=== PATIENT | male | born 1955 | race Caucasian/White ===

== ENCOUNTER → 2016-09-20 | Outpatient (CLI) | payer OTHER ==
[2016-09-20 19:23] LABS: Basophils % (A) 0 %; Eosinophils # (A) 0.2 k/uL (0-0.7); Eosinophils % (A) 2 %; HDW 2.84; HGB 15.2 gm/dL (13.0-17.5); Luc # (Auto) 0.08; Luc % (Auto) 1; Lymphocytes # (A) 1.6 k/uL (1.0-4.8); Lymphocytes % (A) 24 %; MCH 29.2 pg (25.0-35.0); MCHC 33.1 g/dL (31.0-37.0); MCV 88.4 fL (80.0-100.0); Mean Platelet Volume 8.5; Monocytes # (A) 0.3 k/uL (0-1.0); Monocytes % (A) 5 %; Neutrophils # (A) 4.4 k/uL (1.3-7.7); Neutrophils % (A) 67 %; RDW 14.2 % (11.5-15.5); WBC 6.6 k/uL (3.8-10.6); WBC (Perox) 6.53
[2016-09-20 19:31] LABS: ALT 40 U/L (21-72); AST 26 U/L (17-59); Alkaline Phosphatase 93 U/L (38-126); Anion Gap 11 mmol/L; Blood Urea Nitrogen 11 mg/dL (9-20); Calcium 9.8 mg/dL (8.4-10.2); Carbon Dioxide 29 mmol/L (22-30); Chloride 102 mmol/L (98-107); Cholesterol 250 mg/dL (<200); Glucose 102 mg/dL (74-99); HDL Cholesterol 58 mg/dL (40-60); Non-African American GFR(MDRD) >60 (>60 ml/min/1.73 sqM); Potassium 4.2 mmol/L (3.5-5.1); Sodium 142 mmol/L (137-145); Total Bilirubin 0.7 mg/dL (0.2-1.3); Total Protein 7.7 g/dL (6.3-8.2); Triglycerides 287 mg/dL (<150)
== END ==
LOC: MMGSC 11:34
PROVIDERS: ATTEND Family Medicine
DX: Z00.00 Encounter for general adult medical examination without abnormal findings (principal); Z12.5 Encounter for screening for malignant neoplasm of prostate
CPT/HCPCS: 84439; 80053; 80061; 84443; 85025; 36415; G0103

== ENCOUNTER → 2016-11-11 | Outpatient (CLI) | payer OTHER ==
--- NOTE | 2016-11-11 10:30 | CT ---
EXAMINATION TYPE: CT abdomen pelvis w con DATE OF EXAM: 11/11/2016 COMPARISON: NONE HISTORY: 61 year-old male right lower quadrant pain, history of hernia TECHNIQUE: Contiguous axial scanning of the abdomen and pelvis following administration of 100 ml Omn ipaque 300 IV contrast. Delayed images through the kidneys and coronal/sagittal reconstructions perf ormed. CT DLP: 547.1 mGycm Automated exposure control for dose reduction was used. FINDINGS: Heart is normal size without pericardial effusion. Lung bases clear without pleural effusion. Small hiatal hernia. No focal liver lesion or biliary ductal dilatation. Portal venous system is patent. Gallbladder, adrenal glands, kidneys, spleen, and pancreas appear within normal limits. Rgeu-yn-orcrzpcy atherosclerotic calcifications within the abdominal aorta and iliac arteries without aneurysm. No dilated small bowel, free fluid, or free air. Mild to moderate stool burden. Mild circumferential wall thickening of the mid to distal sigmoid colo n may be secondary to under distention. No pericolonic inflammatory change. Bladder is partially urine distended. Prostate gland heterogeneous and mildly enlarged at 4.3 cm. No abnormal fluid collection in the pelvis or pelvic lymphadenopathy. Bones: Nonspecific sclerotic focus left iliac bone measures 2.2 cm. Mild degenerative changes lower l umbar spine with lumbar laminectomy changes. No osseous destructive process. IMPRESSION: 1. CIRCUMFERENTIAL WALL THICKENING OF THE MID TO DISTAL SIGMOID COLON MAY RELATE TO UNDERDISTENTION. CORRELATE TO EXCLUDE A MILD NONSPECIFIC COLITIS. 2. SMALL HIATAL HERNIA. 3. A ROUND 2.2 CM SCLEROTIC LESION IN THE LEFT ILIAC BONE IS NONSPECIFIC AND HAS OVERALL NONAGGRESSIV E FEATURES. A 6 MONTH FOLLOW-UP EXAM OF THE PELVIS CAN ENSURE STABILITY.
== END | disposition home or self-care (01) ==
LOC: RADCTMAIN 09:28
PROVIDERS: ATTEND Surgery
DX: K63.89 Other specified diseases of intestine (principal); M89.8X8 Other specified disorders of bone, other site
CPT/HCPCS: 74177; Q9967

== ENCOUNTER 2016-11-30 11:20 | Day surgery (SDC) | payer MEDICARE, OTHER ==
[2016-11-25 14:19] VITALS: BMI 26.6
[~2016-11-30 11:20] MED LIST: LACTATED RINGERS 1,000 ML IV SCH
[2016-11-30] MEDS ORDERED: LACTATED RINGERS 1,000 ML IV ONE (11:45)
[2016-11-30] MEDS ORDERED: LIDOCAINE 1% 20 ML VIAL (10MG/ML) FOR IV START INTRADERMA ONE (11:45)
[2016-11-30 11:50] VITALS: RESP 16; TEMP 98.7
[2016-11-30] MEDS ORDERED: PROPOFOL 10 MG/ML 20 ML VIAL IV ONE (11:51)
--- NOTE | 2016-11-30 11:55 | P.GSHP ---
History of Present Illness H&P Date: 11/30/16 Chief Complaint: GERD, colitis This a 61-year-old male referred from Dr. Darlin So. Patient has had complaints of GERD. His recent CAT scan shows evidence of sigmoid colon thickening. He resents today for EGD and colonoscopy. Past Medical History Past Medical History: COPD, GERD/Reflux, Hyperlipidemia, Sleep Apnea/CPAP/BIPAP , Thyroid Disorder Additional Past Medical History / Comment(s): hiatal hernia, History of Any Multi-Drug Resistant Organisms: None Reported Past Surgical History: Back Surgery, Hernia Repair, Orthopedic Surgery, Tonsillectomy Additional Past Surgical History / Comment(s): 2 CERVICAL FUSIONS, INGA CARPAL TUNNEL , RT FOOT SURGURY A CHILD, LAMINECTOMY Past Anesthesia/Blood Transfusion Reactions: No Reported Reaction Smoking Status: Former smoker - Past Family History Father Family Medical History: Cancer Additional Family Medical History / Comment(s): LUNG CA Medications and Allergies Home Medications Medication Instructions Recorded Confirmed Type Albuterol Inhaler [Ventolin 1 - 2 puff INHALATION DIRECTED 02/12/15 11/30/16 History Inhaler] PRN Aspirin EC [Ecotrin] 81 mg PO DAILY 02/12/15 11/30/16 History Budesonide-Formot 160-4.5 Mcg 2 puff INHALATION BID 02/12/15 11/30/16 History [Symbicort 160-4.5 Mcg Inhaler] Levothyroxine Sodium [Synthroid] 50 mcg PO DAILY 02/12/15 11/30/16 History DULoxetine HCL [Cymbalta] 60 mg PO DAILY 11/25/16 11/30/16 History Lansoprazole [Prevacid] 30 mg PO DAILY 11/25/16 11/30/16 History Simvastatin 20 mg PO DAILY 11/25/16 11/30/16 History Allergies Allergy/AdvReac Type Severity Reaction Status Date / Time oxycodone HCl [From Tylox] Allergy Unknown Itching Verified 11/30/16 11:43 Surgical - Exam Vital Signs Temp Pulse Resp BP Pulse Ox 98.7 F 67 16 141/79 98 11/30/16 11:45 11/30/16 11:45 11/30/16 11:45 11/30/16 11:45 11/30/16 11:45 - General well developed, no distress - Eyes PERRL - ENT normal pinna - Neck no masses - Respiratory normal expansion - Cardiovascular Rhythm: regular - Abdomen Abdomen: soft, non tender Assessment and Plan Plan: GERD. We'll perform EGD. Sigmoid colon inflammation. We'll perform colonoscopy.
--- NOTE | 2016-11-30 12:10 | P.OP ---
Date of Procedure: 11/30/16 Preoperative Diagnosis: GERD Colitis Postoperative Diagnosis: Antral gastritis Small hiatal hernia Esophagitis Segment colon polyp Procedure(s) Performed: EGD Colonoscopy Implants: Anesthesia: MAC Surgeon: Chadwick Clay Pathology: other (Antrum, sigmoid colon polyp) Condition: stable Disposition: PACU Indications for Procedure: Operative Findings: Description of Procedure: Patient's placed on the endoscopy table in the lateral position. He received IV sedation. The gastroscope placed oropharynx passed in the esophagus and stomach. Scope was then placed through the pylorus. The first and second portion of duodenum appeared normal. Scope was then brought back the antrum and this appeared mildly inflamed. A biopsies performed. The scope was unretroflexed and the remainder stomach appeared normal. The GE junction was at 40 cm. The distal esophagus appeared minimally inflamed and a biopsies performed. There was a small hiatal hernia. The proximal esophagus appeared normal. Scope was withdrawn. Next digital rectal exam was performed which revealed no abnormalities. The flexible colonoscope was then placed patient anus passed throughout the entire colon. The ileocecal valve sutures. The cecum, ascending and transverse colon appeared normal. In the descending; there is a few scattered diverticula. In the; there was a small polyp seen was removed forcep. There is no evidence of any sigmoid colon inflammation. The scope was then brought back the rectum and this appeared normal. Scope was withdrawn for patient.
[2016-11-30 12:39] VITALS: BP 139/67; PULSE 67
== END 2016-11-30 13:03 | disposition home or self-care (01) ==
LOC: ORWHC2ENDO 11:20
PROVIDERS: ATTEND Surgery
DX: K52.9 Noninfective gastroenteritis and colitis, unspecified (principal); K29.60 Other gastritis without bleeding; K44.9 Diaphragmatic hernia without obstruction or gangrene; K21.0 Gastro-esophageal reflux disease with esophagitis; D12.5 Benign neoplasm of sigmoid colon; K57.30 Diverticulosis of large intestine without perforation or abscess without bleeding; E78.5 Hyperlipidemia, unspecified; J44.9 Chronic obstructive pulmonary disease, unspecified; Z87.891 Personal history of nicotine dependence; G47.30 Sleep apnea, unspecified; Z99.89 Dependence on other enabling machines and devices; E07.9 Disorder of thyroid, unspecified; Z79.82 Long term (current) use of aspirin; Z79.51 Long term (current) use of inhaled steroids; Z79.899 Other long term (current) drug therapy; Z88.5 Allergy status to narcotic agent
CPT/HCPCS: 88305; 45380; 43239; J2704

== ENCOUNTER → 2016-12-23 | Outpatient (CLI) | payer MEDICARE, OTHER | END | disposition home or self-care (01) | LOC: LABWHC1 11:56 | PROVIDERS: ATTEND Surgery | DX: Z01.810 Encounter for preprocedural cardiovascular examination (principal) | CPT/HCPCS: 93005 ==

== ENCOUNTER 2016-12-30 08:00 | Day surgery (SDC) | payer MEDICARE, OTHER ==
[2016-12-22 15:34] VITALS: BMI 26.6
[~2016-12-30 08:00] MED LIST changes: +DEXAMETHASONE SOD PHOSPHATE 10 MG/ML 1 ML VIAL IV ONE; +HEPARIN SODIUM,PORCINE 5,000 UNIT/ML 1 ML VIAL SQ ONE; +HYDROmorphone 1 MG/ML 1 ML SYRINGE IVP PRN; +LIDOCAINE 1% 20 ML VIAL (10MG/ML) FOR IV START INTRADERMA PRN; +ONDANSETRON 4 MG/2 ML VIAL IVP ONE; +SCOPOLAMINE 1.5MG/72HR PATCH TRANSDERM ONE; +ceFAZolin 2 GM in SODIUM CHLORIDE 0.9% 100 ML IVPB ONE
--- NOTE | 2016-12-30 09:09 | P.GSHP ---
History of Present Illness H&P Date: 12/30/16 Chief Complaint: GERD This a 61-year-old male referred from Dr. Darlin So.. MThe patient has had long-standing problems with reflux esophagitis. The patient underwent recent EGD is found have evidence of esophagitis. Patient has been well informed on the procedure of laparoscopic Rory fundoplication. The patient is aware the risk of the conversion to the open procedure, risk of injury to the stomach, liver and spleen. The patient is also a risk of recurrent GERD and dysphagia symptoms. The patient understands there is a postoperative diet of full liquids for 2 weeks after surgery. Past Medical History Past Medical History: COPD, GERD/Reflux, Hyperlipidemia, Sleep Apnea/CPAP/BIPAP , Thyroid Disorder Additional Past Medical History / Comment(s): hiatal hernia, History of Any Multi-Drug Resistant Organisms: None Reported Past Surgical History: Back Surgery, Hernia Repair, Orthopedic Surgery, Tonsillectomy Additional Past Surgical History / Comment(s): 2 CERVICAL FUSIONS, INGA CARPAL TUNNEL , RT FOOT SURG. A CHILD, LAMINECTOMY Past Anesthesia/Blood Transfusion Reactions: No Reported Reaction Smoking Status: Former smoker - Past Family History Father Family Medical History: Cancer Additional Family Medical History / Comment(s): LUNG CA Medications and Allergies Home Medications Medication Instructions Recorded Confirmed Type Albuterol Inhaler [Ventolin 1 - 2 puff INHALATION Q6H PRN 02/12/15 12/30/16 History Inhaler] Aspirin EC [Ecotrin] 81 mg PO DAILY 02/12/15 12/30/16 History Budesonide-Formot 160-4.5 Mcg 2 puff INHALATION BID 02/12/15 12/30/16 History [Symbicort 160-4.5 Mcg Inhaler] Levothyroxine Sodium [Synthroid] 50 mcg PO DAILY 02/12/15 12/30/16 History DULoxetine HCL [Cymbalta] 60 mg PO DAILY 11/25/16 12/30/16 History Lansoprazole [Prevacid] 30 mg PO DAILY 11/25/16 12/30/16 History Simvastatin 20 mg PO DAILY 11/25/16 12/30/16 History Allergies Allergy/AdvReac Type Severity Reaction Status Date / Time oxycodone HCl [From Tylox] Allergy Unknown Itching Verified 12/30/16 08:52 Surgical - Exam Vital Signs Temp Pulse Resp BP 97.9 F 74 16 136/87 12/30/16 08:15 12/30/16 08:15 12/30/16 08:15 12/30/16 08:15 - General well developed, no distress - Eyes PERRL - ENT normal pinna - Neck no masses - Respiratory normal expansion - Cardiovascular Rhythm: regular - Abdomen Abdomen: soft, non tender Assessment and Plan Plan: GERD. We'll perform laparoscopic Rory fundoplication.
[2016-12-30] MEDS ORDERED: GLYCOPYRROLATE 0.2 MG/ML 2 ML VIAL ONE (09:31)
[2016-12-30] MEDS ORDERED: KETOROLAC 30 MG/ML 1 ML VIAL ONE (09:31)
[2016-12-30] MEDS ORDERED: SODIUM CHLORIDE 0.9% 250 ML with ceFAZolin 2,000 MG IV ONE ×2 (09:31)
[2016-12-30] MEDS ORDERED: fentaNYL (PF) 50 MCG/ML 2 ML AMP ONE (09:31)
[2016-12-30] MEDS ORDERED: MIDAZOLAM 2 MG/2 ML VIAL ONE (09:31)
[2016-12-30] MEDS ORDERED: LIDOCAINE 1% INJ 10MG/ML (20 ML MDV) ONE (09:31)
[2016-12-30] MEDS ORDERED: HYDROmorphone (PF) 1 MG/ML ONE (09:31)
[2016-12-30] MEDS ORDERED: ROCURONIUM BROMIDE 10 MG/ML 10 ML VIAL IV ONE (09:31)
[2016-12-30] MEDS ORDERED: NEOSTIGMINE 1 MG/ML 10 ML VIAL ONE (09:31)
[2016-12-30] MEDS ORDERED: SUCCINYLCHOLINE CHLORIDE 100 MG/5 ML SYR IV ONE (09:31)
[2016-12-30] MEDS ORDERED: PROPOFOL 10 MG/ML 20 ML VIAL IV ONE (09:31)
[2016-12-30] MEDS ORDERED: BUPIVACAIN-EPI 0.5%-1:200,000 30 ML VIAL SQ ONE (09:57)
--- NOTE | 2016-12-30 10:15 | P.OP ---
Date of Procedure: 12/30/16 Preoperative Diagnosis: GERD Postoperative Diagnosis: GERD Procedure(s) Performed: Laparoscopic Rory fundal location Implants: Anesthesia: JUAN C Surgeon: Chadwick Clay Estimated Blood Loss (ml): 5 Pathology: none sent Condition: stable Disposition: PACU Indications for Procedure: Operative Findings: Description of Procedure: The patient was placed on the operating table in the supine position. The patient received general anesthesia. And was placed in dorsal lithotomy position. The patient was prepped and draped in the usual sterile fashion. The skin incision sites were anesthetized with 1% local Xylocaine. The skin was incised in the left periumbilical area and then using a blade less 5 mm trocar under direct visualization panel cavity was entered. After adequate insufflation the laparoscope was then placed into the peritoneal cavity. Next a 5 mm trochars placed in the right epigastric position. Another 5 millimeter trocar the right lateral position. Another 5 millimeter trocar in the left lateral position a 5 mm trocar is placed in the left epigastric position. And then the initial 5 mm trocar was exchanged for a 10 mm trocar. The left lateral lobe liver was retracted. The hernia was seen. The crural defect was then dissected using the Harmonic scissors device. A 360 crural dissection was performed the esophagus stomach was reduced back into the peritoneal Cavity. The crural defect was then closed using 2-0 Ethibond suture. Next the fundus of the stomach was mobilized using the [place] scissors device. and then a 58-Faroese bougie dilator was placed oropharynx passed into the esophagus and stomach the fundal plication wrap was then performed by grasping the fundus posteriorly and bringing it around the esophagus and stomach fundoplication was then performed using 2-0 Ethibond suture. Care was taken that the fundal location rested over top of the intra-abdominal esophagus. There was no injury seen to the stomach or esophagus. The dilator was then withdrawn. The abdomen was irrigated there is no bleeding seen. The trochars were then withdrawn and then skin incision sites were closed using 3-0 Monocryl suture Steri-Strips are applied. Patient thought procedure well and sent to recovery room in stable condition.
[2016-12-30] MEDS ORDERED: ONDANSETRON 4 MG/2 ML VIAL IVP PRN (10:16)
[2016-12-30] MEDS ORDERED: HYDROmorphone 1 MG/ML 1 ML SYRINGE IVP PRN (10:16)
[2016-12-30 10:50] VITALS: RESP 16
[2016-12-30] MEDS ORDERED: LACTATED RINGERS 1,000 ML IV ONE ×2 (10:54)
[2016-12-30] MEDS: D5-0.45% NACL WITH KCL 20MEQ/L 1,000 ML IV SCH ×2 (11:00→19:43)
[2016-12-30] MEDS: METOCLOPRAMIDE 5 MG/ML 2 ML VIAL IVP SCH ×3 (11:00→23:33)
--- NOTE | 2016-12-30 16:11 | FL ---
Single contrast esophagram EXAMINATION TYPE: FL esophagus cervic/pharynx DATE OF EXAM: 12/30/2016 3:51 PM COMPARISON: NONE CLINICAL HISTORY: Status post Erlin fundoplication The patient ingested contrast without difficulty or delay. Noted are changes of Erlin fundoplicatio n. There is no evidence for leak or obstruction. Small amount of residual contrast within the distal esophagus. IMPRESSION: Post-surgical change of Erlin fundoplication without evidence for leak or obstruction.
[2016-12-30] MEDS ORDERED: ALBUTEROL NEBULIZED 2.5 MG/3 ML INHALATION PRN (19:01)
[2016-12-30] MEDS: SYMBICORT 160-4.5 MCG INHALER INHALATION SCH (19:17)
[2016-12-31] MEDS: D5-0.45% NACL WITH KCL 20MEQ/L 1,000 ML IV SCH (03:58)
[2016-12-31] MEDS: METOCLOPRAMIDE 5 MG/ML 2 ML VIAL IVP SCH (06:00)
[2016-12-31] MEDS ORDERED: LEVOTHYROXINE 50 MCG TAB PO SCH (06:30)
[2016-12-31 07:22] VITALS: BP 128/70; PULSE 64; TEMP 97.1
[2016-12-31] MEDS: SYMBICORT 160-4.5 MCG INHALER INHALATION SCH (07:29)
[2016-12-31] MEDS ORDERED: PANTOPRAZOLE 40 MG TABLET PO SCH (07:30)
[2016-12-31] MEDS ORDERED: ASPIRIN 81 MG CHEW PO SCH (09:00)
[2016-12-31] MEDS ORDERED: ENOXAPARIN 40 MG/0.4 ML SYRINGE SQ SCH (09:00)
[2016-12-31] MEDS ORDERED: DULoxetine HCL 60 MG CAPSULE.DR PO SCH (09:00)
[2016-12-31] MEDS ORDERED: ATORVASTATIN 10 MG TAB PO SCH (09:00)
--- NOTE | 2016-12-31 09:30 | P.DS ---
Providers Expected date of discharge: 12/31/16 Attending physician: Chadwick Clay Primary care physician: Darlin Pritchett - Discharge Diagnosis(es) (1) GERD (gastroesophageal reflux disease) Current Visit: Yes Status: Acute Hospital Course: The patient presented for laparoscopic Rory fundoplication. He was monitored afterwards and was doing well by postop day 1. Tolerating clear liquids with minimal pain. [place] to be stable for discharge. Swallow study was normal. Pertinent Studies: Swallow study Patient Condition at Discharge: Good Plan - Discharge Summary New Discharge Prescriptions: New Docusate [Colace] 100 mg PO BID #20 capsule HYDROcodone/APAP 7.5-325MG [[place] 7.5] 1 each PO Q4H PRN #60 tab PRN Reason: Pain No Action Budesonide-Formot 160-4.5 Mcg [Symbicort 160-4.5 Mcg Inhaler] 2 puff INHALATION BID Aspirin EC [Ecotrin] 81 mg PO DAILY Albuterol Inhaler [Ventolin Inhaler] 1 - 2 puff INHALATION Q6H PRN PRN Reason: Shortness Of Breath Levothyroxine Sodium [Synthroid] 50 mcg PO DAILY Lansoprazole [Prevacid] 30 mg PO DAILY DULoxetine HCL [Cymbalta] 60 mg PO DAILY Simvastatin 20 mg PO DAILY Discharge Medication List Albuterol Inhaler [Ventolin Inhaler] 1 - 2 puff INHALATION Q6H PRN 02/12/15 [ History] Aspirin EC [Ecotrin] 81 mg PO DAILY 02/12/15 [History] Budesonide-Formot 160-4.5 Mcg [Symbicort 160-4.5 Mcg Inhaler] 2 puff INHALATION BID 02/12/15 [History] Levothyroxine Sodium [Synthroid] 50 mcg PO DAILY 02/12/15 [History] DULoxetine HCL [Cymbalta] 60 mg PO DAILY 11/25/16 [History] Lansoprazole [Prevacid] 30 mg PO DAILY 11/25/16 [History] Simvastatin 20 mg PO DAILY 11/25/16 [History] Docusate [Colace] 100 mg PO BID #20 capsule 12/30/16 [Rx] HYDROcodone/APAP 7.5-325MG [[place] 7.5] 1 each PO Q4H PRN #60 tab 12/30/16 [Rx] Follow up Appointment(s)/Referral(s): Chadwick Clay MD [STAFF PHYSICIAN] - 1 Week Discharge Disposition: HOME SELF-CARE
== END 2016-12-31 12:50 | disposition home or self-care (01) ==
LOC: OR 08:00 → 3SUR 10:20 → OR 12-31 12:50
PROVIDERS: ATTEND Surgery
DX: K21.0 Gastro-esophageal reflux disease with esophagitis (principal); K44.9 Diaphragmatic hernia without obstruction or gangrene; J44.9 Chronic obstructive pulmonary disease, unspecified; E78.5 Hyperlipidemia, unspecified; G47.30 Sleep apnea, unspecified; E07.9 Disorder of thyroid, unspecified; Z79.82 Long term (current) use of aspirin; Z79.51 Long term (current) use of inhaled steroids; Z79.899 Other long term (current) drug therapy; Z88.5 Allergy status to narcotic agent; Z87.891 Personal history of nicotine dependence
CPT/HCPCS: 94640 ×2; 74210; 43280; J2250; J1644; J1100; J2710; J2765 ×2; Q9967; J2405; J0690; J2001; J1650; J3010; J1885; J1170; J0330; J2704

== ENCOUNTER → 2017-07-07 | Outpatient (CLI) | payer MEDICARE, OTHER ==
[2017-07-07 08:15] LABS: ALT 72 U/L (21-72); AST 49 U/L (17-59); Albumin 4.5 g/dL (3.5-5.0); Alkaline Phosphatase 94 U/L (38-126); Anion Gap 10 mmol/L; Blood Urea Nitrogen 12 mg/dL (9-20); Calcium 10.2 mg/dL (8.4-10.2); Carbon Dioxide 32 mmol/L (22-30); Chloride 102 mmol/L (98-107); Cholesterol 283 mg/dL (<200); Glucose 94 mg/dL (74-99); HDL Cholesterol 61 mg/dL (40-60); LDL Cholesterol,Calculated 162 mg/dL (0-99); Phosphorus 4.2 mg/dL (2.5-4.5); Potassium 4.3 mmol/L (3.5-5.1); Sodium 144 mmol/L (137-145); Total Bilirubin 0.4 mg/dL (0.2-1.3); Total Protein 7.6 g/dL (6.3-8.2); Triglycerides 299 mg/dL (<150)
[2017-07-07 08:25] LABS: HCT 45.2 % (39.0-53.0); HGB 15.2 gm/dL (13.0-17.5); MCHC 33.7 g/dL (31.0-37.0); MCV 86.1 fL (80.0-100.0); Mean Platelet Volume 7.6; Platelet Count 168 k/uL (150-450); RBC 5.25 m/uL (4.30-5.90); RDW 13.8 % (11.5-15.5)
[2017-07-07 17:07] LABS: Vitamin D 25 Hydroxy 10.3 ng/mL (30.0-100.0)
[2017-07-07 18:11] LABS: Parathyroid Hormone Intact 23.5 pg/mL (14.0-72.0)
== END | disposition home or self-care (01) ==
LOC: LABWHC1 07:31
PROVIDERS: ATTEND Internal Medicine
DX: N18.3 Chronic kidney disease, stage 3 (moderate) (principal); E03.9 Hypothyroidism, unspecified; E78.1 Pure hyperglyceridemia
CPT/HCPCS: 36415; 80053; 80061; 80069; 82306; 83970; 84439; 84443; 85027

== ENCOUNTER → 2017-09-01 | Outpatient (CLI) | payer MEDICARE, OTHER ==
--- NOTE | 2017-09-01 13:03 | CONS ---
CONSULTATION DATE OF SERVICE: 09/01/2017 A 62-year-old gentleman has been evaluated in the sleep center for treatment of obstructive sleep apnea-hypopnea syndrome, twitching of the legs during the night, sleepiness during the day with high [place] Sleepiness Scale of 16 while on treatment with CPAP. HISTORY OF PRESENT ILLNESS/SLEEP WAKE EVALUATION: Patient had been diagnosed with obstructive sleep apnea about 3-1/2 years ago. Since that time, on treatment with CPAP, but while using CPAP according to his , he still snores and wakes up from sleep several times with nocturia. His sleep schedule from 9 p.m. to 7 a.m. basically 7 days a week. Sometimes he has problem with falling asleep and he is taking Seroquel at bedtime to help him with falling asleep. During the night as I already mentioned even while he is using CPAP, he snores. In the morning, he wakes up tired, has difficulties to pay attention, falling asleep during the day. [place] Sleepiness Scale significantly increased to 16. The patient has positive history of twitching and kicking of legs during the night. Patient increased his weight about 10 pounds since previous sleep studies. He also develops more problem with breathing through his nose recently. PAST MEDICAL HISTORY: Positive for depression, episodes of , hypothyroidism, COPD. PAST SURGICAL HISTORY: Surgical treatment of hiatal hernia, cervical fusion, bilateral surgery for carpal tunnel syndrome. REVIEW OF SYSTEMS: Awakenings from sleep, sleepiness during the day. Difficulties with the hearing. Patient is using hearing aids. No fevers. No double vision. No recent chest pain. No shortness of breath. No abdominal pain. No bleeding episodes. No blood in urine. No seizure episodes. MEDICATIONS: Cymbalta, Seroquel, Zocor, Synthroid, Symbicort, Ventolin, Lyrica, Flomax, vitamin D3 supplement, vitamin E supplement, aspirin. SOCIAL HISTORY: Positive for smoking for about 30 years up to 1-1/2 packs a day, quit around 15 years ago. Alcohol consumption occasional. FAMILY HISTORY: Hypertension, hyperlipidemia, arthritis, asthma, cancer, lung problems, emphysema, sleep apnea, snoring, thyroid problems, diabetes. PHYSICAL EXAMINATION: During physical exam, a gentleman without distress. VITAL SIGNS: BP 101/64, HR 96, RR 16, height 5 feet 6-1/2 inches, weight 172, BMI 27.3, temperature 98, oxygen saturation room air 96%. HEENT: PERRLA, EOMI. Oropharynx: Low position of soft palate. Significant restriction of nasal breathing. NECK: 16-1/2 inches in circumference. LUNGS:Clear to percussion and to auscultation. Good air exchange. No wheezing or rhonchi. HEART: S1, S2 regular. No murmurs, gallops, or rubs. ABDOMEN: Soft and nontender. Bowel sounds are present. No organomegaly appreciated. EXTREMITIES: No clubbing or cyanosis. AUTOMOTIVE LOT ATTENDANT: Awake, alert, and oriented X3. Cranial nerves 2 to 7 intact. There is no fasciculation or atrophy. noted. No focal deficits observed. IMPRESSION: 1. History of obstructive sleep apnea-hypopnea syndrome for 3-1/2 years on treatment with CPAP but on CPAP patient snores and has symptoms of excessive daytime sleepiness. [place] Sleepiness Scale increased to 16. He increased his weight since previous CPAP titration. Low position of soft palate. Restriction of nasal breathing. 2. Restriction of nasal breathing. 3. Twitching and kicking with legs during the night, possible periodic limb movement syndrome. 4. Significant excessive daytime sleepiness. [place] Sleepiness Scale increased to 16, necessity to include additional possible disorders like hypersomnia to differential diagnosis. 5. Depression. 6. Episodes of . 7. Sometimes difficulties with initiating sleep. 8. History of restless leg symptoms while falling asleep, restless legs syndrome. 9. Difficulties to hear. The patient is using hearing aids. PLAN: 1. We will repeat the CPAP titration for evaluation of effective CPAP pressure at the present time. Also possibly to change fitting with the mask. The patient tried different styles of mask including nasal pillows, nasal mask and full face mask. At the present time, he prefer to consider full face mask because he developed problems to breathe through his nose. 2. Preferable position during sleep on the side. 3. No driving if patient feels any sleepiness. Patient is aware of civil and criminal liability for unsafe driving. 4. I will see patient for follow up visit to explain results of testing and following plan. Thank you very much for referring this patient for consultation. Sincerely, Gene Roman MD, PhD, FAASM Diplomat of [place] [employer] [place] [employer] Manager of [facility] [place] [facility] / MAY[place]: [id number] /
== END | disposition home or self-care (01) ==
LOC: SLEEP 11:22
PROVIDERS: ATTEND Internal Medicine
DX: G47.33 Obstructive sleep apnea (adult) (pediatric) (principal); J98.8 Other specified respiratory disorders; F32.9 Major depressive disorder, single episode, unspecified; G25.81 Restless legs syndrome; H93.8X9 Other specified disorders of ear, unspecified ear; Z99.89 Dependence on other enabling machines and devices; Z87.891 Personal history of nicotine dependence; Z79.899 Other long term (current) drug therapy; Z79.82 Long term (current) use of aspirin
CPT/HCPCS: 99211

== ENCOUNTER → 2017-11-23 | Outpatient (CLI) | payer MEDICARE, OTHER ==
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
== END | disposition home or self-care (01) ==
LOC: RADCTMAIN 16:25
PROVIDERS: ATTEND Psychiatry & Neurology Neurology
DX: M47.812 Spondylosis without myelopathy or radiculopathy, cervical region (principal); G31.9 Degenerative disease of nervous system, unspecified; Z98.890 Other specified postprocedural states
CPT/HCPCS: 70450; 72125

== ENCOUNTER → 2017-12-22 | Outpatient (CLI) | payer MEDICARE ==
--- NOTE | 2017-12-22 12:28 | PN ---
PROGRESS NOTE DATE OF SERVICE: 12/22/2017 A 62-year-old gentleman who has been followed in the Sleep Center for treatment of obstructive sleep apnea-hypopnea syndrome recently, he had CPAP titration and received new CPAP unit. With a new CPAP unit. according to patient, he sleeps much better and feel better during the day. [place] Sleepiness Scale today is 12, which is still slightly above normal. I checked the patient's CPAP unit, usage is 100% of the time for more than 4 hours. Average usage 10.7 hours. Pressure is 13 cm of water. Leak is only 5 L/minute, although patient using full-face mask. Apnea-hypopnea index for the last month is 8.5, including total apnea index 6.4, and central apnea index 2.9. MEDICATIONS: Cymbalta, Seroquel, Zocor, Synthroid, Symbicort, Ventolin, Lyrica, Flomax, vitamin D, vitamin E, aspirin. PHYSICAL EXAM: Patient in no distress. BP 97/59, HR 75, RR 16, weight 167, temp 97.8, oxygen saturation at room air 97%. OROPHARYNX: Low position of soft palate. Neck Supple, no JVD. Thyroid is not palpable. LUNGS Clear to percussion and to auscultation. Good air exchange. No wheezing or rhonchi. HEART S1, S2 regular. No murmurs, gallops, or rubs. ABDOMEN Soft and nontender. Bowel sounds are present. No organomegaly appreciated. EXTREMITIES No clubbing or cyanosis. COORDINATOR OF REHABILITATION SERVICES Awake, alert, and oriented X3. Cranial nerves 2 to 7 intact. There is no fasciculation or atrophy. noted. No focal deficits observed. IMPRESSION: 1. Obstructive central sleep apnea-hypopnea syndrome, patient demonstrated 100% compliance with treatment, benefitting from treatment. 2. Severe periodic limb movements have been documented during titration. No clinical symptoms of leg movements according to patient. 3. Depression. 4. History of restless legs syndrome. 5. Some problems with the hearing. 6. Chronic obstructive pulmonary disease. 7. Back problems. status post back surgery. PLAN: 1. Patient will continue to use CPAP equipment every night for the whole night. 2. I will increase pressure from 13 cm of water up to 14 cm of water. 3. Sleep hygiene with regular time in bed for at least 8 hours. 4. No driving if feeling any sleepiness. Thank you very much for allowing me to participate in the management of the patient. Sincerely, Gene Roman MD, PhD, FAASM Diplomat of [place] [employer] [place] [employer] Resolution Rep of [facility] [place] [facility] / [place]: [id number] /
== END | disposition home or self-care (01) ==
LOC: SLEEP 11:22
PROVIDERS: ATTEND Internal Medicine
DX: G47.33 Obstructive sleep apnea (adult) (pediatric) (principal); G47.61 Periodic limb movement disorder; G25.81 Restless legs syndrome; J44.9 Chronic obstructive pulmonary disease, unspecified; H91.90 Unspecified hearing loss, unspecified ear; F32.9 Major depressive disorder, single episode, unspecified; Z99.89 Dependence on other enabling machines and devices; Z79.51 Long term (current) use of inhaled steroids; Z79.899 Other long term (current) drug therapy; Z79.82 Long term (current) use of aspirin; Z98.890 Other specified postprocedural states

== ENCOUNTER → 2018-01-11 | Outpatient (CLI) | payer MEDICARE, OTHER ==
[2018-01-10 12:16] VITALS: BMI 28.0
[2018-01-11 13:22] VITALS: BP 133/70; PULSE 71; RESP 18; TEMP 98.5
--- NOTE | 2018-01-11 13:48 | P.PAINCN ---
History of Present Illness - Reason for Consult Consult date: 01/11/18 - History of Present Illness This is 62 years old male, with a chronic history of severe headache, and neck pain started 6 months ago, he was evaluated by Dr. Blanco, and he was diagnosed with occipital neuralgia, and he referred to [facility] for bilateral occipital nerve block, patient reported that his neck pain and headache increased with any activity, he denies any motor or sensory deficit, but he reports he originally had some numbness and tingling sensation that radiated from the neck towards the upper extremity, he denies any fever or night sweats Past Medical History Past Medical History: COPD, GERD/Reflux, Hyperlipidemia, Renal Disease, Sleep Apnea/CPAP/BIPAP, Thyroid Disorder Additional Past Medical History / Comment(s): headaches,uses cpap,Stg 2 kidney disease History of Any Multi-Drug Resistant Organisms: None Reported Past Surgical History: Back Surgery, Hernia Repair, Orthopedic Surgery, Tonsillectomy Additional Past Surgical History / Comment(s): 2 CERVICAL FUSIONS, INGA CARPAL TUNNEL , RT FOOT SURG,LAMINECTOMY,hiatal hernia repair,lt inguinal hernia repair Past Anesthesia/Blood Transfusion Reactions: No Reported Reaction Past Psychological History: Depression Smoking Status: Former smoker Past Alcohol Use History: Occasional Additional Past Alcohol Use History / Comment(s): quit smoking 13 yrs ago, smoked for 35-40 yrs, 1 1/2 PPD Past Drug Use History: None Reported - Past Family History Father Family Medical History: Cancer Additional Family Medical History / Comment(s): LUNG CA Medications and Allergies Home Medications Medication Instructions Recorded Confirmed Type Albuterol Inhaler [Ventolin 1 - 2 puff INHALATION Q6H PRN 02/12/15 01/11/18 History Inhaler] Aspirin EC [Ecotrin] 81 mg PO DAILY 02/12/15 01/11/18 History Budesonide-Formot 160-4.5 Mcg 2 puff INHALATION BID 02/12/15 01/11/18 History [Symbicort 160-4.5 Mcg Inhaler] Levothyroxine Sodium [Synthroid] 50 mcg PO DAILY 02/12/15 01/11/18 History DULoxetine HCL [Cymbalta] 60 mg PO DAILY 11/25/16 01/11/18 History Atorvastatin [Lipitor] 20 mg PO DAILY 01/10/18 01/11/18 History Cholecalciferol [Vitamin D3] 5,000 unit PO DAILY 01/10/18 01/11/18 History Pregabalin [Lyrica] 75 mg PO BID 01/10/18 01/11/18 History QUEtiapine [SEROquel] 200 mg PO HS 01/10/18 01/11/18 History Tamsulosin [Flomax] 0.4 mg PO DAILY 01/10/18 01/11/18 History Allergies Allergy/AdvReac Type Severity Reaction Status Date / Time oxycodone HCl [From Tylox] Allergy Unknown Itching Verified 01/11/18 13:13 Physical Exam Vitals: Vital Signs Temp Pulse Resp BP 01/11/18 13:14 98.5 F 71 18 133/70 Intake and Output 01/10/18 01/11/18 01/11/18 22:59 06:59 14:59 Other: Weight 76.839 kg Social history : not smoker , NO ETOH , NO Illegal drugs use Review of Systems : 1- Constitutional : no chills , no fever , no night sweats , 2- Ears : no ear discharge , no change in hearing 3-Nose, Mouth ,Throat ; no bleeding gums, no sore throat , no epistaxis , 4-Cardiovascular : Denies chest pain, , no orthopnea , no palpitation 5-Respiratory : Denies cough , no dyspnea , no hemoptysis 6-Gastrointestinal :, no change in bowel habits , no coffee- ground emesis . 7-Genitourinary : No hematuria , no discharge , no incontinence, 8-Musculoskeletal : No gait dysfunction , report low back pain , 9- Neurological : no ataxia , no tremor , no sezure , 10-Psychatric , no suicidal ideation no hallucination 11- Endocrine : no cold intolerence , no polyuria , no polydypsia , 12-Hematologic : no easy bleeding , no easy brusing , 13-Allergic / immunology : no angioedema , no wheezing ,no allergic rhinitis 14-Integumentary : no brttle nails , no change hair / nails , no foot/leg ulcers . Physical Examinations : 1-Constitutional : Cooperative , not in acute distress . 2-HEENT : nech ; supple , no Lymphadenopathy , no Thyromegaly , :eyes , no icterus, no photophobia . ENT : , normal oropharynx , no Thrush 3- Respiratory : Chest clear to auscultations Bilaterally , no wheezing . 4- Cardiovascular : regular rate and rhythem , S1 , S2 , no S3 , no S4. 5- Gastrointestinal: abdomen soft no tenderness , no organomegally . 6- Genitourinary : Defferred . 7-Integumentary : No cellulitis , no ulcers , normal skin turgor , no cyanotic . 8- neurologic : Cranial nerve II to XII intact , no focal neurological deffecit 9-psychatric : alert , oriented X 3 , appropriate affect , intact judgment and insight . 10-Lymphatic : no Lymphadenopathy. 11- musculoskeltal: normal gait Cervical Spine motor stregnth in the deltoid and biceps, normal right side , normal Left side motor stregnth biceps and the wrist extensors normal right side ,normal left side . motor stregnth in the triceps muscle . normal Right side , normal Left side deep tendon reflexes normal at the biceps , normal at Brachioradialis , normal at triceps. positive cervical facet loading test . 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 2-cervicogenic headache. 3-cervical spondylosis. Patient would be good candidate to have bilateral occipital nerve block, we'll do it twice, if patient continued to have severe headache/neck pain, after the occipital nerve block then we will proceed with the diagnostic medial branch block cervical area at C2-3/C3-4/and third occipital nerve, and possible radiofrequency after that, treatment plan discussed with the patient and his and they agreed PQRS Measure Charge Sheet Measure #130: Documentation of Current Meds in Medical Chart: Patient's medications documented in chart Measure #226: Tobacco Use: Screen & Cessation Intervention: Pt not a tobacco user Measure #111: Pneumonia Vaccination: Pneumococcal vaccine NOT administered or previously given Measure #47: Advance Care Plan: Advance care planning discussed & documented, pt chose/unable to give Measure #412: Opioid Treatment Agreement: No documentation of signed opioid treatment agreement Measure #408: Opioid Therapy Follow-up Evaluation: Patient had NO f/u eval minimum every 3 months during opioid therapy Measure #317: Preventitive Care & Scrn High Bld Press & F/U: Normal blood pressure, f/u not required Measure #128: Body Mass Index (BMI) Screening & Follow-up: BMI documented ABOVE normal parameters - f/u documented Measure #131: Pain Assessment & Follow-up: Pain positive & plan documented, Follow-up scheduled Measure #431: Unhealthy Alcohol Use Preventative Care & Scrn: Patient not identified as an unhealthy alcohol user PQRS Narrative: Smoking Status Former smoker Do You Want the Pneumonia No Vaccine AT THIS TIME? Blood Pressure 133/70 Pain Intensity [Neck] 4 Hx Alcohol Use (MH) Yes: social Home Medications: Ambulatory Orders Albuterol Inhaler [Ventolin Inhaler] 1 - 2 puff INHALATION Q6H PRN 02/12/15 Aspirin EC [Ecotrin] 81 mg PO DAILY 02/12/15 Budesonide-Formot 160-4.5 Mcg [Symbicort 160-4.5 Mcg Inhaler] 2 puff INHALATION BID 02/12/15 Levothyroxine Sodium [Synthroid] 50 mcg PO DAILY 02/12/15 DULoxetine HCL [Cymbalta] 60 mg PO DAILY 11/25/16 Atorvastatin [Lipitor] 20 mg PO DAILY 01/10/18 Cholecalciferol [Vitamin D3] 5,000 unit PO DAILY 01/10/18 Pregabalin [Lyrica] 75 mg PO BID 01/10/18 QUEtiapine [SEROquel] 200 mg PO HS 01/10/18 Tamsulosin [Flomax] 0.4 mg PO DAILY 01/10/18
== END | disposition home or self-care (01) ==
LOC: PNWHC3 13:04
PROVIDERS: ATTEND Specialist
DX: G89.29 Other chronic pain (principal); M54.81 Occipital neuralgia; R51 Headache; M47.812 Spondylosis without myelopathy or radiculopathy, cervical region; J44.9 Chronic obstructive pulmonary disease, unspecified; K21.9 Gastro-esophageal reflux disease without esophagitis; E78.5 Hyperlipidemia, unspecified; N28.9 Disorder of kidney and ureter, unspecified; E07.9 Disorder of thyroid, unspecified; Z79.82 Long term (current) use of aspirin; Z88.8 Allergy status to other drugs, medicaments and biological substances; Z87.891 Personal history of nicotine dependence; Z79.899 Other long term (current) drug therapy
CPT/HCPCS: 99211

== ENCOUNTER 2018-02-07 07:24 | Day surgery (SDC) | payer MEDICARE, OTHER ==
[2018-02-01 09:57] VITALS: BMI 25.8
[~2018-02-07 07:24] MED LIST changes: -DEXAMETHASONE SOD PHOSPHATE 10 MG/ML 1 ML VIAL IV ONE; -HEPARIN SODIUM,PORCINE 5,000 UNIT/ML 1 ML VIAL SQ ONE; -HYDROmorphone 1 MG/ML 1 ML SYRINGE IVP PRN; -LIDOCAINE 1% 20 ML VIAL (10MG/ML) FOR IV START INTRADERMA PRN; -ONDANSETRON 4 MG/2 ML VIAL IVP ONE; -SCOPOLAMINE 1.5MG/72HR PATCH TRANSDERM ONE; -ceFAZolin 2 GM in SODIUM CHLORIDE 0.9% 100 ML IVPB ONE
[2018-02-07 07:51] VITALS: RESP 16; TEMP 97
--- NOTE | 2018-02-07 08:23 | P.PCN ---
Date of Procedure: 02/07/18 Procedure(s) Performed: Preoperative diagnoses= 1- Greater occipital neuralgia 2-cervicogenic headache Postoperative diagnoses= same as preoperative diagnosis. Procedure= Bilateral Greater occipital nerve block Anesthesia= moderate sedation with Versed 1 mg, and fentanyl 50 micrograms . Estimated blood loss=minimal. Procedure indication= the patient had a history of severe chronic neck pain , and headache, diagnosed with occipital neuralgia exam was positive for severe tenderness over the occipital nerve bilaterally, she will be a good candidate occipital nerve block, patient failed conservative management Procedure description= the patient was seen and identified in the preoperative holding area, risks and benefits and alternative of the procedure and possible complications discussed with the patient, and he agreed with the preceding, patient signed the consent, an IV was started, and vital signs were monitored and were stable throughout the procedure, patient was placed in the sitting position or table and the neck area was prepped and draped with a sterile fashion, vital signs were closely monitored during the procedure, 25-gauge needle advanced 1 inch lateral to the occipital protuberance on the right side , at the location of the right occipital nerve , then after negative aspiration for heme and CSF and there was no paresthesia during the injection, 6 ml of Robivacaine 0.5% and 40 mg of Kenalog injected ,after negative aspiration, the needle removed, and the entire same procedure was repeated for the Left Greater occipital nerve. Patient tolerated the procedure well without any complication, The patient returned to supine position after the back was cleaned and a Band- Aid applied, the patient transported to recovery room in stable condition and he was monitored for 30 minutes before he was discharged home and then patient was reexamined before going home and patient was discharged in stable condition and patient will follow up with the pain clinic in few weeks.
[2018-02-07 08:59] VITALS: BP 128/66; PULSE 76
== END 2018-02-07 09:17 | disposition home or self-care (01) ==
LOC: ORPAIN 07:24
PROVIDERS: ATTEND Specialist
DX: M54.81 Occipital neuralgia (principal); J44.9 Chronic obstructive pulmonary disease, unspecified; G47.33 Obstructive sleep apnea (adult) (pediatric); E07.9 Disorder of thyroid, unspecified; Z88.5 Allergy status to narcotic agent
CPT/HCPCS: 64405 ×2; J2250; J3301; J3010

== ENCOUNTER → 2018-02-28 | Outpatient (CLI) | payer MEDICARE ==
[2018-02-28 12:25] VITALS: BP 131/80; PULSE 77; RESP 18
--- NOTE | 2018-02-28 13:12 | P.PAINPG ---
Subjective Progress Note Date: 02/28/18 This is follow up for this 62 years old male, with a chronic history of severe headache, and neck pain started 6 months ago, diagnosed with cervicogenic headache and occipital neuralgia, and cervical spondylosis with cervical facet arthropathy, done occipital nerve block bilaterally , patient reported that he got good pain relief but only for short-term after each occipital nerve block , he denies any motor or sensory deficits he denies any referral or night sweats denies any change in bowel movement or urination Medication Instructions Recorded Confirmed Type Albuterol Inhaler [Ventolin 1 - 2 puff INHALATION Q6H PRN 02/12/15 01/11/18 History Inhaler] Aspirin EC [Ecotrin] 81 mg PO DAILY 02/12/15 01/11/18 History Budesonide-Formot 160-4.5 Mcg 2 puff INHALATION BID 02/12/15 01/11/18 History [Symbicort 160-4.5 Mcg Inhaler] Levothyroxine Sodium [Synthroid] 50 mcg PO DAILY 02/12/15 01/11/18 History DULoxetine HCL [Cymbalta] 60 mg PO DAILY 11/25/16 01/11/18 History Atorvastatin [Lipitor] 20 mg PO DAILY 01/10/18 01/11/18 History Cholecalciferol [Vitamin D3] 5,000 unit PO DAILY 01/10/18 01/11/18 History Pregabalin [Lyrica] 75 mg PO BID 01/10/18 01/11/18 History QUEtiapine [SEROquel] 200 mg PO HS 01/10/18 01/11/18 History Tamsulosin [Flomax] 0.4 mg PO DAILY 01/10/18 01/11/18 History Social history : not smoker , NO ETOH , NO Illegal drugs use Review of Systems : 1- Constitutional : no chills , no fever , no night sweats , 2- Ears : no ear discharge , no change in hearing 3-Nose, Mouth ,Throat ; no bleeding gums, no sore throat , no epistaxis , 4-Cardiovascular : Denies chest pain, , no orthopnea , no palpitation 5-Respiratory : Denies cough , no dyspnea , no hemoptysis 6-Gastrointestinal :, no change in bowel habits , no coffee- ground emesis . 7-Genitourinary : No hematuria , no discharge , no incontinence, 8-Musculoskeletal : No gait dysfunction , report low back pain , 9- Neurological : no ataxia , no tremor , no sezure , 10-Psychatric , no suicidal ideation no hallucination 11- Endocrine : no cold intolerence , no polyuria , no polydypsia , 12-Hematologic : no easy bleeding , no easy brusing , 13-Allergic / immunology : no angioedema , no wheezing ,no allergic rhinitis 14-Integumentary : no brttle nails , no change hair / nails , no foot/leg ulcers . Physical Examinations : 1-Constitutional : Cooperative , not in acute distress . 2-HEENT : nech ; supple , no Lymphadenopathy , no Thyromegaly , :eyes , no icterus, no photophobia . ENT : , normal oropharynx , no Thrush 3- Respiratory : Chest clear to auscultations Bilaterally , no wheezing . 4- Cardiovascular : regular rate and rhythem , S1 , S2 , no S3 , no S4. 5- Gastrointestinal: abdomen soft no tenderness , no organomegally . 6- Genitourinary : Defferred . 7-Integumentary : No cellulitis , no ulcers , normal skin turgor , no cyanotic . 8- neurologic : Cranial nerve II to XII intact , no focal neurological deffecit 9-psychatric : alert , oriented X 3 , appropriate affect , intact judgment and insight . 10-Lymphatic : no Lymphadenopathy. 11- musculoskeltal: normal gait Cervical Spine motor stregnth in the deltoid and biceps, normal right side , normal Left side motor stregnth biceps and the wrist extensors normal right side ,normal left side . motor stregnth in the triceps muscle . normal Right side , normal Left side deep tendon reflexes normal at the biceps , normal at Brachioradialis , normal at triceps. positive cervical facet loading test . 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 2-cervicogenic headache. 3-cervical spondylosis. Description had short-term benefit after occipital nerve block done on 2 different occasions, patient will be good candidate to have diagnostic medial branch block cervical area C2-C3/C3 4/and third occipital nerve block in the feet had good result and we will proceed with the radiofrequency ablation of the medial paracervical area, procedure risk and benefits and alternatives discussed with the patient he agreed with proceeding Objective - Vital Signs Vital signs: Vital Signs Temp Pulse 77 02/28/18 12:19 Resp 18 02/28/18 12:19 BP 131/80 02/28/18 12:19 Pulse Ox 96 02/28/18 12:19 Intake & Output 02/27/18 02/28/18 02/28/18 18:59 06:59 18:59 Weight 76.657 kg PQRS Measure Charge Sheet Measure #130: Documentation of Current Meds in Medical Chart: Patient's medications documented in chart Measure #226: Tobacco Use: Screen & Cessation Intervention: Pt not a tobacco user Measure #111: Pneumonia Vaccination: Pneumococcal vaccine NOT administered or previously given Measure #47: Advance Care Plan: Advance care planning discussed & documented, pt chose/unable to give Measure #412: Opioid Treatment Agreement: No documentation of signed opioid treatment agreement Measure #408: Opioid Therapy Follow-up Evaluation: Patient had NO f/u eval minimum every 3 months during opioid therapy Measure #317: Preventitive Care & Scrn High Bld Press & F/U: Normal blood pressure, f/u not required Measure #128: Body Mass Index (BMI) Screening & Follow-up: BMI documented ABOVE normal parameters - f/u documented Measure #131: Pain Assessment & Follow-up: Pain positive & plan documented, Follow-up scheduled Measure #431: Unhealthy Alcohol Use Preventative Care & Scrn: Patient not identified as an unhealthy alcohol user PQRS Narrative: Smoking Status Former smoker Do You Want the Pneumonia No Vaccine AT THIS TIME? Blood Pressure 131/80 Pain Intensity [Bilateral Neck 6 ] Hx Alcohol Use (MH) Yes: social Home Medications: Ambulatory Orders Albuterol Inhaler [Ventolin Inhaler] 1 - 2 puff INHALATION Q6H PRN 02/12/15 Aspirin EC [Ecotrin] 81 mg PO DAILY 02/12/15 Budesonide-Formot 160-4.5 Mcg [Symbicort 160-4.5 Mcg Inhaler] 2 puff INHALATION BID 02/12/15 Levothyroxine Sodium [Synthroid] 50 mcg PO DAILY 02/12/15 DULoxetine HCL [Cymbalta] 60 mg PO BID 11/25/16 Atorvastatin [Lipitor] 20 mg PO DAILY 01/10/18 Cholecalciferol [Vitamin D3] 5,000 unit PO DAILY 01/10/18 Pregabalin [Lyrica] 75 mg PO BID 01/10/18 QUEtiapine [SEROquel] 200 mg PO HS 01/10/18 Tamsulosin [Flomax] 0.4 mg PO DAILY 01/10/18 Controlled Substance Measures - Controlled Substance Measures Is patient prescribed a controlled substance at discharge?: No When asked, does pt state using other controlled substances?: No If prescribed controlled substance>3 days was MAPS reviewed?: No If Rx opioid, was Start Talking consent form obtained?: No If opioid is for acute pain is fill amount 7 days or less?: No Was information provided regarding opioid addiction?: No
== END | disposition home or self-care (01) ==
LOC: PNWHC3 11:43
PROVIDERS: ATTEND Specialist
DX: M54.81 Occipital neuralgia (principal); R51 Headache; M47.812 Spondylosis without myelopathy or radiculopathy, cervical region; Z87.891 Personal history of nicotine dependence; Z79.82 Long term (current) use of aspirin; Z79.899 Other long term (current) drug therapy
CPT/HCPCS: 99211

== ENCOUNTER → 2018-03-02 | Day surgery (SDC) | payer MEDICARE ==
[2018-02-28 16:05] VITALS: BMI 26.0
[~2018-03-02] MED LIST changes: +IV FLUID CONTINUATION 1,000 ML IV ONE; +LIDOCAINE 1% 20 ML VIAL (10MG/ML) FOR IV START INTRADERMA ONE
[2018-03-02 09:15] VITALS: RESP 16; TEMP 97
--- NOTE | 2018-03-02 10:28 | P.PCN ---
Date of Procedure: 03/02/18 Procedure(s) Performed: PREOPERATIVE DIAGNOSIS: 1-Cervical Spondylosis with Facet Arthropathy.without myelopathy. 2-occipital neuralgia. 3-cervicogenic headache. POSTOPERATIVE DIAGNOSIS: Same as preoperative diagnosis. PROCEDURES: Diagnostic bilateral C2-3 , C3-4, medial branch blocks, with fluoroscopic guidance. Diagnostic bilateral cervical occipital nerve block under fluoroscopy guidance. ANESTHESIA: Local with 1% lidocaine; moderate sedation with Versed 2 mg , and fentanyl 50 micrograms EBL: Minimal PROCEDURE INDICATION: The patient with neck pain and headache secondary to cervical arthropathy unresponsive to more conservative treatments. PROCEDURE DESCRIPTION / TECHNIQUE: The patient was seen and identified in the preoperative area. Risks, benefits, complications, and alternatives were discussed with the patient, the patient agreed to proceed with the procedure and signed the consent. IV was started. Vital signs remained stable throughout the procedure. Patient was taken to the OR and time out was completed. The patient was placed in the prone position on the procedure table. A pillow was placed under the patients chest to increase the cervical interlaminar space. The cervical area was prepped and draped in the usual sterile fashion. Critical pause was taken. Vital signs were closely monitored during the procedure. Conscious sedation was used during the procedure to decrease patients anxiety. Using cross-table lateral fluoroscopy, the centroid of the trapezoid of right C2 , C3, was identified, marked, and localized with 1% lidocaine 1 ml at each level for skin and Sub Q infiltrations . Subsequently, a 22 G 2 spinal needle was advanced guided by fluoroscopy to the centroid of the trapezoid of Righ C2 , C3, . [place] tip position was confirmed at the centroid of the trapezoids of Right C2 ,C3 with anteroposterior fluoroscopy. Subsequently, 1 ml of preservative-free Ropivacaine 0.5% mixed with Kenalog 10 mg and half ml of the mixture was injected after negative aspiration for blood and CSF. [place] was then removed intact the same procedure was repeated at the left C2- 3 , C 3-4 levels Also another 22-gauge Quincke Needle placed at the junction of the facet joint at this formed between the Right C2 on C3 vertebra (which is the location of the third occipital nerve),needle placed in the middle of the facet joint, then after negative aspiration ropivacaine 0.5% half mL and 10 mg of Kenalog mixed with her and injected after negative aspiration, the procedure was repeated for the left side COMPLICATIONS: No acute complications DISPOSITION / PLANS: The patient was placed in a supine position and transferred to the recovery area in a stable condition for observation and was discharged from the recovery room after meeting discharge criteria. Home discharge instructions given to the patient by the staff. The patient was reexamined prior to discharge. The patient will schedule a follow up in the clinic in 2-4 weeks.
[2018-03-02 11:03] VITALS: BP 124/84; PULSE 71
--- NOTE | 2018-03-02 12:07 | FL ---
Fluoroscopy INDICATION: Pain FINDINGS: Fluoroscopy time: 12 seconds. Images obtained: 4. IMPRESSIONS: 1. Documentation of fluoroscopy.
== END | disposition home or self-care (01) ==
LOC: ORPAIN 08:46
PROVIDERS: ATTEND Specialist
DX: M47.812 Spondylosis without myelopathy or radiculopathy, cervical region (principal); M54.81 Occipital neuralgia; J45.909 Unspecified asthma, uncomplicated
CPT/HCPCS: 64490; 64491; 64405; J2250; J3301; J3010; 99152

== ENCOUNTER → 2018-03-21 | Day surgery (SDC) | payer MEDICARE ==
[2018-03-17 12:10] VITALS: BMI 25.0
[~2018-03-21] MED LIST changes: -IV FLUID CONTINUATION 1,000 ML IV ONE; -LACTATED RINGERS 1,000 ML IV SCH; -LIDOCAINE 1% 20 ML VIAL (10MG/ML) FOR IV START INTRADERMA ONE; +SODIUM CHLORIDE 0.9% 1,000 ML IV ONE; +SODIUM CHLORIDE 0.9% 500 ML 500 ML IV SCH
[2018-03-21 08:09] VITALS: RESP 15; TEMP 97.6
--- NOTE | 2018-03-21 09:17 | P.PCN ---
Date of Procedure: 03/21/18 Procedure(s) Performed: PREOPERATIVE DIAGNOSIS: 1-Cervical Spondylosis with Facet Arthropathy.without myelopathy. 2-occipital neuralgia. 3-cervicogenic headache. POSTOPERATIVE DIAGNOSIS: Same as preoperative diagnosis. PROCEDURES: Diagnostic bilateral C2-3 , C3-4, medial branch blocks, with fluoroscopic guidance. Diagnostic bilateral 3 rd occipital nerve block under fluoroscopy guidance. ANESTHESIA: Local with 1% lidocaine; moderate sedation with Versed 2 mg , and fentanyl 50 micrograms EBL: Minimal PROCEDURE INDICATION: The patient with neck pain and headache secondary to cervical arthropathy unresponsive to more conservative treatments. PROCEDURE DESCRIPTION / TECHNIQUE: The patient was seen and identified in the preoperative area. Risks, benefits, complications, and alternatives were discussed with the patient, the patient agreed to proceed with the procedure and signed the consent. IV was started. Vital signs remained stable throughout the procedure. Patient was taken to the OR and time out was completed. The patient was placed in the prone position on the procedure table. A pillow was placed under the patients chest to increase the cervical interlaminar space. The cervical area was prepped and draped in the usual sterile fashion. Critical pause was taken. Vital signs were closely monitored during the procedure. Conscious sedation was used during the procedure to decrease patients anxiety. Using cross-table lateral fluoroscopy, the centroid of the trapezoid of right C2 , C3, was identified, marked, and localized with 1% lidocaine 1 ml at each level for skin and Sub Q infiltrations . Subsequently, a 22 G 2 spinal needle was advanced guided by fluoroscopy to the centroid of the trapezoid of Righ C2 , C3, . Perry tip position was confirmed at the centroid of the trapezoids of Right C2 ,C3 with anteroposterior fluoroscopy. Subsequently, 1 ml of preservative-free Ropivacaine 0.5% mixed with Kenalog 10 mg and half ml of the mixture was injected after negative aspiration for blood and CSF. Perry was then removed intact the same procedure was repeated at the left C2- 3 , C 3-4 levels Also another 22-gauge Quincke Needle placed at the junction of the facet joint at this formed between the Right C2 on C3 vertebra (which is the location of the third occipital nerve),needle placed in the middle of the facet joint, then after negative aspiration ropivacaine 0.5% half mL and 10 mg of Kenalog mixed with her and injected after negative aspiration, the procedure was repeated for the left side COMPLICATIONS: No acute complications DISPOSITION / PLANS: The patient was placed in a supine position and transferred to the recovery area in a stable condition for observation and was discharged from the recovery room after meeting discharge criteria. Home discharge instructions given to the patient by the staff. The patient was reexamined prior to discharge. The patient will schedule a follow up in the clinic in 2-4 weeks.
[2018-03-21 09:55] VITALS: BP 141/65; PULSE 93
--- NOTE | 2018-03-21 10:46 | FL ---
EXAMINATION TYPE: FL guided pain mgmt statistic DATE OF EXAM: 03/21/2018 COMPARISON: NONE HISTORY: Neck pain TECHNIQUE: Fluoroscopy. FINDINGS/IMPRESSION: Fluoroscopic guidance was provided during procedure performed by Dr. Coker. A total of 38 seconds of fluoroscopic time was utilized during the procedure and 4 spot images was a cquired demonstrating localization of the cervical spine at multiple levels.
== END ==
LOC: ORPAIN 07:56
PROVIDERS: ATTEND Specialist
DX: M47.812 Spondylosis without myelopathy or radiculopathy, cervical region (principal); M54.81 Occipital neuralgia; E03.9 Hypothyroidism, unspecified; Z88.5 Allergy status to narcotic agent
CPT/HCPCS: 64490; 64491; J2250; J3301; J3010; 64492; 99152; 99153

== ENCOUNTER → 2018-03-30 | Outpatient (CLI) | payer MEDICARE ==
--- NOTE | 2018-03-30 11:03 | SFUN ---
SLEEP CENTER FOLLOW UP NOTE A 63-year-old gentleman who has been followed in the [facility] for treatment of obstructive sleep apnea-hypopnea syndrome. He continued to use his machine every night without any significant problems. During previous visit, I increased the pressure in his machine up to 14 cm of water because during last visit, his apnea-hypopnea index was increased to 8.5. I checked his CPAP unit today. CPAP pressure is 14 cm of water. Usage is 100% of the time more than 4 hours. Average usage is 9.6 hours. Leak is 8 L/minute, which is normal range. Apnea-hypopnea index for the last month 6.2, which is acceptable. Amberson Sleepiness Scale today is 5. MEDICATIONS: Seroquel, Cymbalta, Zocor, Symbicort, Synthroid, Ventolin, Lyrica, Flomax, vitamin D, vitamin E, aspirin. PHYSICAL EXAM: gentleman without distress. BP 137/81, HR 82, RR 16, height 5, 7 , weight 163, which is 4 pounds less than during the previous visit. Body mass index 25.5, temperature 97.8, oxygen saturation at room air 99%. Evaluation of oropharynx showed low position of soft palate. Neck Supple, no JVD. Thyroid is not palpable. LUNGS Clear to percussion and to auscultation. Good air exchange. No wheezing or rhonchi. HEART S1, S2 regular. No murmurs, gallops, or rubs. ABDOMEN Soft and nontender. Bowel sounds are present. No organomegaly appreciated. EXTREMITIES No clubbing or cyanosis. FREELANCE DATA ENTRY Awake, alert, and oriented X3. Cranial nerves 2 to 7 intact. There is no fasciculation or atrophy. noted. No focal deficits observed. IMPRESSION: 1. Obstructive sleep apnea-hypopnea syndrome. Patient demonstrated 100% compliance with treatment benefitting from treatment after adjustments of CPAP pressure, respiration improved. 2. No significant symptoms of periodic limb movements which have been documented during titration. 3. History of back problem with some numbness in the legs. 4. History of restless legs syndrome. 5. Some problems with hearing. 6. History of chronic obstructive pulmonary disease. 7. Status post back surgery. PLAN: 1. Patient will continue to use CPAP equipment every night for the whole night. 2. Continue sleep hygiene with regular time in bed for 8 hours. 3. Will maintain prescription for all necessary CPAP supplies. 4. No driving if feeling any sleepiness. 5. Followup visit in 1 year or earlier if patient has any problems. Thank you very much for allowing me to participate in the management of your patient. Sincerely, Gene Roman MD, PhD, FAASM Diplomat of [place] [employer] [place] [employer] Patient Financial Coordinator of [facility] [place] MMODL / IJN: [id number] /
== END | disposition home or self-care (01) ==
LOC: SLEEP 10:09
PROVIDERS: ATTEND Internal Medicine
DX: G47.33 Obstructive sleep apnea (adult) (pediatric) (principal); G25.81 Restless legs syndrome; M53.9 Dorsopathy, unspecified; R20.0 Anesthesia of skin; J44.9 Chronic obstructive pulmonary disease, unspecified; H91.90 Unspecified hearing loss, unspecified ear; Z79.82 Long term (current) use of aspirin; Z79.51 Long term (current) use of inhaled steroids; Z79.899 Other long term (current) drug therapy; Z99.89 Dependence on other enabling machines and devices; Z98.890 Other specified postprocedural states

== ENCOUNTER → 2018-04-24 | Outpatient (CLI) | payer MEDICARE ==
[2018-04-24 13:30] VITALS: BP 140/66; PULSE 76; RESP 16
--- NOTE | 2018-04-24 13:54 | P.PN ---
Subjective Progress Note Date: 04/24/18 Principal diagnosis: Cervical spondylosis Mr. Mccabe presents today for follow-up for bilateral neck pain. He reports that his neck and headaches have significantly improved since his medial branch blocks done on both sides. He is here today inquiring about having a radiofrequency ablation. He reports he is having neck pain which causes and headaches both sides. He reports that he also has some numbness and weakness in both arms which comes and goes. He has a history of bilateral carpal tunnel which was released many years back but continues to have numbness and his arms and hands. He continues to use a cane for ambulation. Objective - Vital Signs Vital signs: Vital Signs Temp Pulse 76 04/24/18 13:21 Resp 16 04/24/18 13:21 BP 140/66 04/24/18 13:21 Pulse Ox Intake & Output 04/23/18 04/24/18 04/24/18 18:59 06:59 18:59 Weight 72.575 kg - Exam General: Awake and alert oriented 3 no distress Respiratory exam: No audible wheezing no accessory muscle usage Cardiovascular exam: regular rate, palpable bilateral pulses, no lower extremity edema Abdominal exam: No distention nontender to palpation Cervical spine: Decreased cervical curvature, Spurling's negative, facet loading positive bilateral Lumbar spine: Loss of lumbar lordosis, normal alignment, tender to palpation over bilateral paraspinal muscles, facet loading is positive bilaterally. Straight leg raise is negative. Sacroiliac joints: Nontender to palpation, NAOMI is negative, Gaenselon negative Neuro exam: Normal sensation in bilateral upper extremities, deep tendon reflexes are 2+ bilateral upper extremities. Normal sensation in bilateral lower extremities. Deep tendon reflexes are 2+ in lower extremities Psych exam: Cooperative, appropriate mood Assessment and Plan Assessment: Cervical spondylosis without myelopathy Plan: Plan is to schedule for a right-sided cervical radiofrequency ablation at the levels of C2 3 and C3 4.. I have explained the procedure in detail and given the patient information about the risks benefits and alternatives to the procedure the patient is willing to move forward with the procedure at this time. I answered all his questions and his 's questions at that time. Time with Patient: Less than 30
== END ==
LOC: PNWHC3 12:41
PROVIDERS: ATTEND Hospitalist
DX: M47.812 Spondylosis without myelopathy or radiculopathy, cervical region (principal)
CPT/HCPCS: 99211

== ENCOUNTER 2018-05-11 06:49 | Day surgery (SDC) | payer MEDICARE ==
[2018-05-09 14:56] VITALS: BMI 25.8
[2018-05-11 07:15] VITALS: TEMP 97.7
[2018-05-11] MEDS ORDERED: LACTATED RINGERS 1,000 ML IV ONE (07:18)
--- NOTE | 2018-05-11 07:55 | P.PCN ---
Date of Procedure: 05/11/18 Preoperative Diagnosis: Cervical spondylosis without myelopathy Postoperative Diagnosis: Same Procedure(s) Performed: Left-sided falls radiofrequency ablation of C2 3 and radiofrequency ablation of C3 4 Anesthesia: MAC Description of Procedure: ANESTHESIA: Local with 1% lidocaine; IV sedation with fentanyl and Versed. EBL: Minimal PROCEDURE INDICATION: The patient with neck pain secondary to cervical arthropathy who had more than 50% relief of her pain with previous diagnostic cervical medial branch block. PROCEDURE DESCRIPTION / TECHNIQUE: The patient was seen and identified in the preoperative area. Risks, benefits, complications, and alternatives were discussed with the patient, the patient agreed to proceed with the procedure and signed the consent. IV was started. Vital signs remained stable throughout the procedure. Patient was taken to the OR and time out was completed. The patient was placed in the prone position on the procedure table. A pillow was placed under the patients chest to increase the cervical interlaminar space. The cervical area was prepped and draped in the usual sterile fashion. Critical pause was taken. Vital signs were closely monitored during the procedure. Conscious sedation was used during the procedure to decrease patient's anxiety. Using cross-table lateral fluoroscopy, the centroid of the trapezoid of C2, C3, C4, were identified, marked, and localized with 1% lidocaine. Subsequently, a 20 [id number] radiofrequency cannula with a 10-mm active tip was advanced guided by fluoroscopy to the centroid of the trapezoid of C2 3 and C4. Needle tip position was confirmed at the center of the trapezoids of C2, C3, C4 with anteroposterior fluoroscopy. Each site then underwent sensory testing at 50 Hz and 0 to 1 volt and motor testing at 2 Hz and 0 to 3 volt with local stimulation, but no radicular symptoms down the arm. C2 underwent pulsed radiofrequency ablation at 60C for 120 seconds. Thereafter C3, C4, sites underwent radiofrequency thermocoagulation at 80 degrees celsius for 90 seconds after injecting 0.5 ml of PF lidocaine 1%. After thermocoagulation, 1 ml of the block solution containing 0.25% ropivacaine was injected 0.5 amounts per level. Cannulas were retracted while injecting lidocaine 1% until the needle is out. Skin was cleansed and bandages were applied. COMPLICATIONS: No acute complications. COMMENTS: DISPOSITION / PLANS: The patient was placed in a supine position and transferred to the recovery area in a stable condition for observation and was discharged from the recovery room after meeting discharge criteria. Home discharge instructions given to the patient by the staff. The patient was reexamined prior to discharge. Perform the right side
[2018-05-11] MEDS ORDERED: IV FLUID CONTINUATION 300 ML IV ONE (08:35)
[2018-05-11 08:43] VITALS: RESP 18
[2018-05-11 08:53] VITALS: BP 141/82; PULSE 64
--- NOTE | 2018-05-11 08:56 | FL ---
EXAMINATION TYPE: FL guided pain mgmt statistic DATE OF EXAM: 05/11/2018 COMPARISON: NONE HISTORY: Neck pain TECHNIQUE: Fluoroscopy. FINDINGS/IMPRESSION: Fluoroscopic guidance was provided during procedure performed by Dr. Morris. A total of 12 seconds of fluoroscopic time was utilized during the procedure and 3 spot images was ac quired demonstrating localization of the cervical spine.
== END 2018-05-11 09:10 | disposition home or self-care (01) ==
LOC: ORPAIN 06:49
PROVIDERS: ATTEND Hospitalist
DX: M47.812 Spondylosis without myelopathy or radiculopathy, cervical region (principal); Z88.5 Allergy status to narcotic agent
CPT/HCPCS: 64633; 64634; J2250; J2001; J3010; 99152

== ENCOUNTER 2018-05-25 06:06 | Day surgery (SDC) | payer MEDICARE ==
[2018-05-24 09:27] VITALS: BMI 25.8
[~2018-05-25 06:06] MED LIST changes: -SODIUM CHLORIDE 0.9% 1,000 ML IV ONE
[2018-05-25 06:22] VITALS: RESP 16; TEMP 98
[2018-05-25] MEDS ORDERED: LACTATED RINGERS 1,000 ML IV ONE (06:26)
[2018-05-25] MEDS ORDERED: IV FLUID CONTINUATION 500 ML IV ONE (07:39)
--- NOTE | 2018-05-25 07:41 | P.PCN ---
Date of Procedure: 05/25/18 Procedure(s) Performed: PREOPERATIVE DIAGNOSIS:1- Cervical spondylosis with Facet Arthropathy without myelopathy. 2-occipital neuralgia. 3-cervicogenic headache POSTOPERATIVE DIAGNOSIS: Same as preop diagnosis. PROCEDURES: Radiofrequency thermocoagulation, right side C2-3, C3-4, medial branch with Fluroscopy Guidence. Radiofrequency thermocoagulation of his right side third occipital nerve, with fluoroscopy guidance ANESTHESIA: Local with Ropivacaine 0.5 % , moderate sedation with fentanyl 100 micrograms and Versed. 1 mg EBL: Minimal PROCEDURE INDICATION: The patient with neck pain secondary to cervical arthropathy who had more than 50% relief of her pain with previous diagnostic cervical medial branch block. PROCEDURE DESCRIPTION / TECHNIQUE: The patient was seen and identified in the preoperative area. Risks, benefits, complications, and alternatives were discussed with the patient, the patient agreed to proceed with the procedure and signed the consent. IV was started. Vital signs remained stable throughout the procedure. Patient was taken to the OR and time out was completed. The patient was placed in the prone position on the procedure table. A pillow was placed under the patients chest to increase the cervical interlaminar space. The cervical area was prepped and draped in the usual sterile fashion. Critical pause was taken. Vital signs were closely monitored during the procedure. Conscious sedation was used during the procedure to decrease patients anxiety. Using cross-table lateral fluoroscopy, the centroid of the trapezoid of right C2 ,C3, were identified, marked, and localized with 1% lidocaine. Subsequently , a 20 [id number] radiofrequency cannula with a 10-mm active tip was advanced guided by fluoroscopy to the centroid of the trapezoid of the right C2 ,C3, . Needle tip position was confirmed at the centroid of the trapezoids of the right C2 ,C3, with anteroposterior fluoroscopy. Each site then underwent sensory testing at 50 Hz and 0 to 1 volt and motor testing at 2 Hz and 0 to 3 volt with local stimulation, but no radicular symptoms down the arm. Thereafter the right C2 ,and C3, sites underwent radiofrequency thermocoagulation at 80 degrees celsius for 90 seconds after injecting 0.5 ml of PF Ropivacaine 0.5 %. After thermocoagulation, 1 ml of the block solution containing depo-Medrol 40 mg and 2mL of preservative-free normal saline was injected at the right C2 ,C3 levels after negative aspiration of CSF and blood and with no paresthesias., then I did the radiofrequency ablation of the right side third occipital nerve by placing 20-gauge radiofrequency active tip needle, placed at the center of the facet joint formed between C2 and C3 on the right side, needle placement confirmed with AP and lateral views and after negative aspiration we did the motor testing which was positive for localized contractions in the muscles on the right side and within the sensory testing which was positive , then after that the radiofrequency done at 80C for 90 seconds, and after the thermocoagulation on the needles removed,and the . Skin was cleansed and bandages were applied. COMPLICATIONS: No acute complications. DISPOSITION / PLANS: The patient was placed in a supine position and transferred to the recovery area in a stable condition for observation and was discharged from the recovery room after meeting discharge criteria. Home discharge instructions given to the patient by the staff. The patient was reexamined prior to discharge. The patient will schedule a follow up in the clinic in 2-4 weeks.
[2018-05-25 07:55] VITALS: BP 126/80; PULSE 77
--- NOTE | 2018-05-25 07:55 | FL ---
EXAMINATION TYPE: FL guided pain mgmt statistic DATE OF EXAM: 05/25/2018 CLINICAL HISTORY: Neck pain. TECHNIQUE: Fluoroscopy. COMPARISON: None. FINDINGS: Fluoroscopic guidance was provided during pain relief procedure performed by Dr. Pepper . A total of 8 seconds of fluoroscopic time was utilized during the procedure and two spot images ar e acquired. Images acquired shows needle localization at level of the upper cervical spine off the m idline with 2 fusion plate present. IMPRESSION: As Above.
== END 2018-05-25 08:11 | disposition home or self-care (01) ==
LOC: ORPAIN 06:06
PROVIDERS: ATTEND Specialist
DX: M47.812 Spondylosis without myelopathy or radiculopathy, cervical region (principal); M54.81 Occipital neuralgia; Z88.5 Allergy status to narcotic agent
CPT/HCPCS: 64633; 64634; 64450; J2250; J1030; J3010; 99152; 99153

== ENCOUNTER → 2018-06-26 | Outpatient (CLI) | payer MEDICARE ==
[2018-06-26 14:13] VITALS: BP 129/76; PULSE 83; RESP 16
--- NOTE | 2018-06-26 15:11 | P.PN ---
Subjective Progress Note Date: 06/26/18 This is follow up for this 62 years old male, with a chronic history of severe headache, diagnosed with cervicogenic headache and occipital neuralgia, and cervical spondylosis with cervical facet arthropathy, we have done radiofrequency ablation of the medial branch cervical area C2 to C3/C3 4 and the third occipital nerve, she reported that his headache improved significantly and he is very satisfied with the result of the radiofrequency, currently he reported that he had minimal pain in the cervical area but he has significant amount of low back pain, the pain increased with any activity and localized in the low back area, patient had lumbar laminectomy and fusion surgery done in 2014 and he continued to have severe low back pain after the surgery, he denies any fever or night sweats he denies any change in the bowel movement or urination he denies any motor or sensory deficit. Physical examination 1-Constitutional : Cooperative , not in acute distress . 2-HEENT : nech ; supple , no Lymphadenopathy , no Thyromegaly , :eyes , no icterus, no photophobia . ENT : , normal oropharynx , no Thrush 3- Respiratory : Chest clear to auscultations Bilaterally , no wheezing . 4- Cardiovascular : regular rate and rhythem , S1 , S2 , no S3 , no S4. 5- Gastrointestinal: abdomen soft no tenderness , no organomegally . 6- Genitourinary : Defferred . 7-Integumentary : No cellulitis , no ulcers , normal skin turgor , no cyanotic . 8- neurologic : Cranial nerve II to XII intact , no focal neurological deffecit 9-psychatric : alert , oriented X 3 , appropriate affect , intact judgment and insight . 10-Lymphatic : no Lymphadenopathy. 11- musculoskeltal: normal gait Cervical Spine = normal motor strength in the upper extremity bilaterally Lumber spine moter stegnth lower extremities ,thigh and legs 5/5 Right side , 5/5 Left side Straight leg raising test negative bilaterally. Bishop test negative bilaterally, Facet loading test positive in the lumbar area bilaterally. sever tenderness over the sacroiliac joint bilaterally right side more than the left side. Computed tomography scan of the cervical spine= history of cervical fusion at C 4 5 and C5 6 [employer] and plan= 1-occipital neuralgia. 2-cervicogenic headache. 3-cervical spondylosis. 4-lumbar spondylosis . 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 Clinically most likely reduce his symptoms is coming from the facetogenic component patient will be good candidate to have diagnostic medial branch block lumbar area, L3 to S1 , and before we do that , we will order MRI of the lumbar spine with and without contrast. Patient will follow up with the pain clinic in 2 weeks ,after we get the MRI report PQRS Measure Charge Sheet Measure #130: Documentation of Current Meds in Medical Chart: Patient's medications documented in chart Measure #226: Tobacco Use: Screen & Cessation Intervention: Pt not a tobacco user Measure #111: Pneumonia Vaccination: Pneumococcal vaccine NOT administered or previously given Measure #47: Advance Care Plan: Advance care planning discussed & documented, pt chose/unable to give Measure #412: Opioid Treatment Agreement: No documentation of signed opioid treatment agreement Measure #408: Opioid Therapy Follow-up Evaluation: Patient had NO f/u eval minimum every 3 months during opioid therapy Measure #317: Preventitive Care & Scrn High Bld Press & F/U: Normal blood pressure, f/u not required Measure #128: Body Mass Index (BMI) Screening & Follow-up: BMI documented ABOVE normal parameters - f/u documented Measure #131: Pain Assessment & Follow-up: Pain positive & plan documented, Follow-up scheduled Measure #431: Unhealthy Alcohol Use Preventative Care & Scrn: Patient not identified as an unhealthy alcohol user PQRS Narrative: - Controlled Substance Measures Is patient prescribed a controlled substance at discharge?: No When asked, does pt state using other controlled substances?: No If prescribed controlled substance>3 days was MAPS reviewed?: No If Rx opioid, was Start Talking consent form obtained?: No If opioid is for acute pain is fill amount 7 days or less?: No Was information provided regarding opioid addiction?: No Objective - Vital Signs Vital signs: Vital Signs Temp Pulse 83 06/26/18 14:05 Resp 16 06/26/18 14:05 BP 129/76 06/26/18 14:05 Pulse Ox 97 06/26/18 14:05 Intake & Output 06/25/18 06/26/18 06/26/18 18:59 06:59 18:59 Weight 75.75 kg
== END | disposition home or self-care (01) ==
LOC: PNWHC3 13:07
PROVIDERS: ATTEND Specialist
DX: G89.29 Other chronic pain (principal); R51 Headache; M54.81 Occipital neuralgia; M47.812 Spondylosis without myelopathy or radiculopathy, cervical region; M46.82 Other specified inflammatory spondylopathies, cervical region; Z98.1 Arthrodesis status; Z98.890 Other specified postprocedural states
CPT/HCPCS: 99211

== ENCOUNTER → 2018-07-13 | Outpatient (CLI) | payer MEDICARE ==
--- NOTE | 2018-07-14 15:21 | MR ---
EXAMINATION TYPE: MR lumbar spine wo/w con DATE OF EXAM: 07/13/2018 COMPARISON: 10/07/2014 [facility]. HISTORY: Spondylosis without myelopathy CONTRAST: 7.5 mL intravenous Gadavist. TECHNIQUE: Multiplanar, multisequence images of the lumbar spine were acquired. FINDINGS: Cord terminates at a T12-L1 level. Laminectomies at L5. L4 present.. Following contrast ad ministration suspicious enhancement is not evident. L5-S1: Mild disc bulge is present. No significant thecal sac compression is evident. Neural foramen a re patent. L4-L5: Small central focal protrusion is present with anterior thecal sac contact. No AP spinal canal stenosis is present. There is mild foraminal narrowing on the left and moderate foraminal narrowing on the right. L3-L4: No significant disc bulge or disc herniation. No spinal canal stenosis. There is mild lynette inal narrowing on the right and mild foraminal narrowing on the left. Facet hypertrophy is present. L2-L3: No significant disc bulge or disc herniation. No spinal canal stenosis. No foraminal stenosi s. Neural foramen are patent.. L1-L2: No significant disc bulge or disc herniation. No spinal canal stenosis. No foraminal stenosi s. T12-L1: No significant disc bulge or disc herniation. No spinal canal stenosis. No foraminal stenos is. IMPRESSION: 1. Foraminal narrowing through the mid to lower lumbar spine discussed above. This appears greatest a t L4-5 on the right with moderate foraminal narrowing. 2. Focal disc bulge L4-5 with anterior thecal sac contact. No stenosis or significant thecal sac comp ression is evident.. 3. Examination appears stable from 2014.
== END | disposition home or self-care (01) ==
LOC: RADMRIMAIN 10:01
PROVIDERS: ATTEND Specialist
DX: M48.061 Spinal stenosis, lumbar region without neurogenic claudication (principal); M51.26 Other intervertebral disc displacement, lumbar region
CPT/HCPCS: 82565; 72158; 36415; A9585

== ENCOUNTER → 2018-07-19 | Outpatient (CLI) | payer MEDICARE, OTHER ==
[2018-07-19 11:51] VITALS: BP 119/62; PULSE 101; RESP 18
--- NOTE | 2018-07-19 12:32 | P.PAINPG ---
Subjective Progress Note Date: 07/19/18 This is follow up for this 63 years old male, with a chronic history of severe headache, diagnosed with cervicogenic headache and occipital neuralgia, and cervical spondylosis with cervical facet arthropathy, we have done radiofrequency ablation of the medial branch cervical area C2 to C3/C3 4 and the third occipital nerve, she reported that his headache improved significantly and he is very satisfied with the result of the radiofrequency, currently he reported that he had minimal pain in the cervical area but he has significant amount of low back pain, the pain increased with any activity and localized in the low back area, patient had lumbar laminectomy surgery done in 2014 ,and he continued to have severe low back pain after the surgery, , patient had new MRI of the lumbar spine done recently and it showed patient had L4 5 laminectomy , and L4 5 and L5-S1 lumbar bulging disc disease , patient continued to have severe low back pain with radiation to the lower extremity associated with numbness and tingling sensation ,he denies any fever or night sweats he denies any change in the bowel movement or urination he denies any motor or sensory deficit. Physical examination 1-Constitutional : Cooperative , not in acute distress . 2-HEENT : nech ; supple , no Lymphadenopathy , no Thyromegaly , :eyes , no icterus, no photophobia . ENT : , normal oropharynx , no Thrush 3- Respiratory : Chest clear to auscultations Bilaterally , no wheezing . 4- Cardiovascular : regular rate and rhythem , S1 , S2 , no S3 , no S4. 5- Gastrointestinal: abdomen soft no tenderness , no organomegally . 6- Genitourinary : Defferred . 7-Integumentary : No cellulitis , no ulcers , normal skin turgor , no cyanotic . 8- neurologic : Cranial nerve II to XII intact , no focal neurological deffecit 9-psychatric : alert , oriented X 3 , appropriate affect , intact judgment and insight . 10-Lymphatic : no Lymphadenopathy. 11- musculoskeltal: normal gait Cervical Spine = normal motor strength in the upper extremity bilaterally Lumber spine moter stegnth lower extremities ,thigh and legs 5/5 Right side , 5/5 Left side Straight leg raising test positive on the right side, and negative on the left side Bishop test positive on the right side, and negative on the left side Facet loading test positive in the lumbar area bilaterally. sever tenderness over the sacroiliac joint bilaterally right side more than the left side. 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 2-cervicogenic headache. 3-cervical spondylosis. 4-lumbar spondylosis. 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 Patient will be good candidate to have caudal epidural steroid injection with lysis of epidural adhesions under fluoroscopy guidanc Objective - Vital Signs Vital signs: Vital Signs Temp Pulse 101 H 07/19/18 11:45 Resp 18 07/19/18 11:45 BP 119/62 07/19/18 11:45 Pulse Ox 96 07/19/18 11:45 Intake & Output 07/18/18 07/19/18 07/19/18 18:59 06:59 18:59 Weight 76.657 kg PQRS Measure Charge Sheet Measure #130: Documentation of Current Meds in Medical Chart: Patient's medications documented in chart Measure #226: Tobacco Use: Screen & Cessation Intervention: Pt not a tobacco user Measure #111: Pneumonia Vaccination: Pneumococcal vaccine NOT administered or previously given Measure #47: Advance Care Plan: Advance care planning discussed & documented, pt chose/unable to give Measure #412: Opioid Treatment Agreement: No documentation of signed opioid treatment agreement Measure #408: Opioid Therapy Follow-up Evaluation: Patient had NO f/u eval minimum every 3 months during opioid therapy Measure #317: Preventitive Care & Scrn High Bld Press & F/U: Normal blood pressure, f/u not required Measure #128: Body Mass Index (BMI) Screening & Follow-up: BMI documented ABOVE normal parameters - f/u documented Measure #131: Pain Assessment & Follow-up: Pain positive & plan documented, Follow-up scheduled Measure #431: Unhealthy Alcohol Use Preventative Care & Scrn: Patient not identified as an unhealthy alcohol user PQRS Narrative: Smoking Status Former smoker Do You Want the Pneumonia No Vaccine AT THIS TIME? Blood Pressure 119/62 Pain Intensity [Bilateral 3 Lower Back] Hx Alcohol Use (MH) Yes: social Home Medications: Ambulatory Orders Albuterol Inhaler [Ventolin Inhaler] 1 - 2 puff INHALATION Q6H PRN 02/12/15 Aspirin EC [Ecotrin] 81 mg PO DAILY 02/12/15 Budesonide-Formot 160-4.5 Mcg [Symbicort 160-4.5 Mcg Inhaler] 2 puff INHALATION BID 02/12/15 Levothyroxine Sodium [Synthroid] 50 mcg PO DAILY 02/12/15 DULoxetine HCL [Cymbalta] 60 mg PO BID 11/25/16 Atorvastatin [Lipitor] 20 mg PO DAILY 01/10/18 Cholecalciferol [Vitamin D3] 5,000 unit PO DAILY 01/10/18 Pregabalin [Lyrica] 75 mg PO BID 01/10/18 QUEtiapine [SEROquel] 200 mg PO HS 01/10/18 Tamsulosin [Flomax] 0.4 mg PO DAILY 01/10/18 Controlled Substance Measures - Controlled Substance Measures Is patient prescribed a controlled substance at discharge?: No When asked, does pt state using other controlled substances?: No If prescribed controlled substance>3 days was MAPS reviewed?: No If Rx opioid, was Start Talking consent form obtained?: No If opioid is for acute pain is fill amount 7 days or less?: No Was information provided regarding opioid addiction?: No
== END | disposition home or self-care (01) ==
LOC: PNWHC3 11:21
PROVIDERS: ATTEND Specialist
DX: G89.29 Other chronic pain (principal); M54.81 Occipital neuralgia; M47.812 Spondylosis without myelopathy or radiculopathy, cervical region; M47.816 Spondylosis without myelopathy or radiculopathy, lumbar region; M96.1 Postlaminectomy syndrome, not elsewhere classified; M46.82 Other specified inflammatory spondylopathies, cervical region; R51 Headache; M51.27 Other intervertebral disc displacement, lumbosacral region; Z98.1 Arthrodesis status; Z87.891 Personal history of nicotine dependence; Z79.82 Long term (current) use of aspirin; Z79.899 Other long term (current) drug therapy
CPT/HCPCS: 99211

== ENCOUNTER 2018-07-24 08:05 | Day surgery (SDC) | payer MEDICARE, OTHER ==
[2018-07-20 16:14] VITALS: BMI 26.2
[2018-07-24 08:17] VITALS: RESP 16; TEMP 97.8
[2018-07-24] MEDS ORDERED: LACTATED RINGERS 1,000 ML IV ONE (08:23)
--- NOTE | 2018-07-24 08:45 | P.PCN ---
Date of Procedure: 07/24/18 Description of Procedure: Attempted caudal epidural steroid injection with lysis. IV conscious sedation with 2 mg of Versed and 50 valente grams of fentanyl were given prior to the procedure. After consenting the patient and the preoperative area and discussing the risks benefits and alternatives to the procedure. We'll brought the patient to the room and placed in the prone position. X-ray was brought in an live fluoroscopy was used to confirm the caudal space. After confirming the sacral corneal patient skin was localized with 1% lidocaine 5 ML's. Attempt was made to access the caudal space and was unsuccessful. Multiple temperature made with a 25-gauge needle. Multiple contrast attempts were made with poor epidural spread. The procedure was aborted no lysis was attempted. The procedure was aborted patient was discharged from the recovery room in stable condition. We will have him follow-up in the clinic.
[2018-07-24] MEDS ORDERED: IV FLUID CONTINUATION 1,000 ML IV ONE (08:48)
[2018-07-24 09:05] VITALS: BP 133/72; PULSE 77
--- NOTE | 2018-07-24 10:39 | FL ---
Fluoroscopy INDICATION: Pain FINDINGS: Fluoroscopy time: 12 seconds. Images obtained: 1. IMPRESSIONS: 1. Documentation of fluoroscopy.
== END 2018-07-24 09:23 | disposition home or self-care (01) ==
LOC: ORPAIN 08:05
PROVIDERS: ATTEND Hospitalist
DX: M96.1 Postlaminectomy syndrome, not elsewhere classified (principal); Z53.8 Procedure and treatment not carried out for other reasons
CPT/HCPCS: 62264; J2250; J1100; J3010; Q9966; C1894; 99152

== ENCOUNTER → 2018-08-21 | Outpatient (CLI) | payer MEDICARE ==
[2018-08-21 12:06] VITALS: BP 133/77; PULSE 87; RESP 16
--- NOTE | 2018-08-21 12:20 | P.PN ---
Progress Note - Text Progress Note Date: 08/21/18 Progress Note - Text 63-year-old male who presents for follow-up visit regarding low back pain and radiating pain into his lower extremities. He had previous lumbar fusion and has persistent, constant numbness and tingling in his bilateral lower extremity. He's had multiple injections in the past that have not provided him with any relief since his surgery. We discussed spinal cord simulation in detail the risks and benefits. We discussed the stage I trial and how he could potentially benefit long-term and improve his overall activities of daily living. Patient is willing to try anything to help him with the chronic constant numbness and tingling and painful radiculopathy. We will evaluate him at the [place] [facility] for spinal cord stimulation. In addition to above, 13-point review of systems is also negative for chest pain, shortness of breath, changes in vision, changes in hearing, new onset weakness, abdominal pain, diarrhea, extreme fatigue, malaise, fever, skin changes, homicidal or suicidal ideation, or bowel or bladder incontinence. Vital Signs: Reviewed in EMR Gen: WDWN, AAOx3, NAD HEENT: NCAT, EOMI, hearing grossly normal Pulm: resp unlabored Abd: soft, NT, ND Neck: supple, trachea midline TTP lower thoracic spine paravertebral area ROM in flexion lumbar spine: reduced ROM in extension lumbar spine: reduced Lumbar paravertebral tenderness: ++ Facet loading: + bilateral SI joint tenderness: + R > L Bishop's test: + R > L Straight leg raise: ++b/l extremities. Lower extremity: decreased ROM dorsiflexion/plantarflexion strength, hip flexion/extension, and knee flexion/extension secondary to pain Lower extremity muscle: 4/5 extensor hallux longus bilaterally. 4/5 plantar flexion on the right. 4/5 dorsiflexion bilaterally. Neuro: CN II-XII grossly intact, muscle strength lower extremities PRESERVED Gait: And lives with assistance of a walker. Imaging: Reviewed in EMR Assessment: 1. Lumbar postlaminectomy syndrome 2. lumbar radiculopathy 3. lumbar spondylosis without myelopathy 4. Cervicalgia 5. Cervical spondylosis without myelopathy 6. Cervicogenic headaches Plan: 1. Explanation: Opioid and psychological risk scores were reviewed. Diagnoses, prognoses, and multiple treatment options including but not limited to physical therapy, interventional therapies, adjuvant medical therapies, narcotic medication therapies, and surgery were discussed with the patient and all questions were answered to the patient's satisfaction. 2. Opioid agreement: 3. Counseling: No counseling required this visit. 4. Procedures: Spinal cord stimulator stage I trial. 5. Consultations: None 6. Investigations: None 7. Medications: He is on Lyrica being prescribed by his PCP. 8. Disposition: We'll send to [facility] for spinal cord stimulator trial. Risks and benefits of the procedure were discussed in detail with the patient. Expectations for the procedure were also discussed in detail. Patient understands that this attention to be an implantable device that will require a small laminectomy. PQRS measures: 1-Patient's medications are documented in the chart. 2-Tobacco use is negative. 3-Patient has not had a pneumococcal vaccine. 4-Advanced care planning discussed, patient unable to give. 5-Opioid contract signed with the patient. 6-Pain positive, follow-up visit or procedure scheduled 7-Patient's blood pressure measured and documented, and WNL. 8-Patient's weight was measured, and body mass index is within the normal limits, and counseling was done. Patient instructed to follow up with PCP. 9-Patient WAS NOT identified as an unhealthy alcohol user.
== END ==
LOC: PNWHC3 11:17
PROVIDERS: ATTEND Anesthesiology
DX: M47.26 Other spondylosis with radiculopathy, lumbar region (principal); M47.22 Other spondylosis with radiculopathy, cervical region; M96.1 Postlaminectomy syndrome, not elsewhere classified; R51 Headache; Z79.899 Other long term (current) drug therapy
CPT/HCPCS: 99211

== ENCOUNTER → 2018-09-14 | Outpatient (CLI) | payer MEDICARE ==
[2018-09-14 09:48] VITALS: BP 109/69; PULSE 85; RESP 16
--- NOTE | 2018-09-14 11:44 | P.PN ---
Progress Note - Text Progress Note Date: 09/14/18 Progress Note - Text 63-year-old male who presents for follow-up visit regarding low back pain and radiating pain into his lower extremities. He was troubled [employer] spinal cord stimulator with excellent relief. He noted significant improvement greater than 70%. Improved ADLs, ambulating without assistance of a cane, was able to do more yard work, be out around the house. Patient wants a stage II implant. In addition to above, 13-point review of systems is also negative for chest pain, shortness of breath, changes in vision, changes in hearing, new onset weakness, abdominal pain, diarrhea, extreme fatigue, malaise, fever, skin changes, homicidal or suicidal ideation, or bowel or bladder incontinence. Vital Signs: Reviewed in EMR Gen: WDWN, AAOx3, NAD HEENT: NCAT, EOMI, hearing grossly normal Pulm: resp unlabored Abd: soft, NT, ND Neck: supple, trachea midline TTP lower thoracic spine paravertebral area ROM in flexion lumbar spine: reduced ROM in extension lumbar spine: reduced Lumbar paravertebral tenderness: ++ Facet loading: + bilateral SI joint tenderness: + R > L Bishop's test: + R > L Straight leg raise: ++b/l extremities. Lower extremity: decreased ROM dorsiflexion/plantarflexion strength, hip flexion/extension, and knee flexion/extension secondary to pain Lower extremity muscle: 4/5 extensor hallux longus bilaterally. 4/5 plantar flexion on the right. 4/5 dorsiflexion bilaterally. Neuro: CN II-XII grossly intact, muscle strength lower extremities PRESERVED Gait: And lives with assistance of a walker. Imaging: Reviewed in EMR Assessment: 1. Lumbar postlaminectomy syndrome 2. lumbar radiculopathy 3. lumbar spondylosis without myelopathy 4. Cervicalgia 5. Cervical spondylosis without myelopathy 6. Cervicogenic headaches Plan: 1. Explanation: Opioid and psychological risk scores were reviewed. Diagnoses, prognoses, and multiple treatment options including but not limited to physical therapy, interventional therapies, adjuvant medical therapies, narcotic medication therapies, and surgery were discussed with the patient and all questions were answered to the patient's satisfaction. 2. Opioid agreement: Not required 3. Counseling: No counseling required this visit. 4. Procedures: We'll follow up for radio frequency ablation of third occipital nerve, C2-C3, C3-C4. 5. Consultations: We'll refer patient to Dr. Aron Liu for stage II spinal cord stimulator implant 6. Investigations: MRI thoracic spine without contrast 7. Medications: He is on Lyrica being prescribed by his PCP. 8. Disposition: Brandon had excellent relief with spinal coursing later trial he reported 70-75% relief of low back pain and radicular pain. The only residual pain he had was minor radicular pain but the trial leads covered 100% of his low back pain. He is interested in getting an implant and he'll require a psychiatric evaluation as well as MRI of the thoracic spine and referral to orthopedic air quality instrument specialist. PQRS measures: 1-Patient's medications are documented in the chart. 2-Tobacco use is negative. 3-Patient has not had a pneumococcal vaccine. 4-Advanced care planning discussed, patient unable to give. 5-Opioid contract signed with the patient. 6-Pain positive, follow-up visit or procedure scheduled 7-Patient's blood pressure measured and documented, and WNL. 8-Patient's weight was measured, and body mass index is within the normal limits, and counseling was done. Patient instructed to follow up with PCP. 9-Patient WAS NOT identified as an unhealthy alcohol user.
== END ==
LOC: PNWHC3 09:17
PROVIDERS: ATTEND Specialist
DX: M47.26 Other spondylosis with radiculopathy, lumbar region (principal); M96.1 Postlaminectomy syndrome, not elsewhere classified; M47.22 Other spondylosis with radiculopathy, cervical region; R51 Headache; Z79.899 Other long term (current) drug therapy
CPT/HCPCS: 99211

== ENCOUNTER → 2018-11-06 | Outpatient (CLI) | payer MEDICARE ==
[2018-11-06 12:06] VITALS: BP 125/60; PULSE 85; RESP 16
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
== END ==
LOC: PNWHC3 11:42
PROVIDERS: ATTEND Hospitalist
DX: M47.26 Other spondylosis with radiculopathy, lumbar region (principal)
CPT/HCPCS: 99211

== ENCOUNTER → 2019-03-08 | Outpatient (CLI) | payer MEDICARE ==
[2019-03-08 13:39] VITALS: BP 129/80; PULSE 91; RESP 16
--- NOTE | 2019-03-08 14:03 | P.PN ---
Subjective Progress Note Date: 03/08/19 This is a 63-year-old gentleman with history of cervical and lumbar postlaminectomy pain syndrome. The patient just received permanent spinal cord stimulator placed by Dr. Turk and his lower back pain has been very well controlled. He also complains of increasing headache and neck pain lately and he reports good relief of pain after his last cervical medial branch RFA for levels C2, 3 and 4. The patient is requesting to have this procedure done one more time. Patient denies new-onset weakness, bowel/bladder incontinence, or any other signs or symptoms of cauda equina syndrome. There are no signs of acute intoxication, and no indications of medication diversion or overuse. In addition to above, 13-point review of systems is also negative for chest pain, shortness of breath, changes in vision, changes in hearing, new onset weakness, abdominal pain, diarrhea, extreme fatigue, malaise, fever, skin changes, homicidal or suicidal ideation, or bowel or bladder incontinence. Vital Signs: Reviewed in EMR Gen: AAOx3, NAD HEENT: PERRLA,hearing grossly normal Pulm: resp unlabored Heart: Regular Neck: supple, trachea midline Tenderness in the paravertebral musculature: Positive in the occipital area bilaterally and also in the cervical paravertebral musculature Neuro: CN II-XII grossly intact, Imaging: Reviewed in EMR/chart Assessment: Cervicogenic headache Cervical and lumbar post times a day pain syndrome Spinal cord stimulator in place Cervical spondylosis without myelopathy Plan: 1. Explanation: Opioid and psychological risk scores were reviewed. Diagnoses, prognoses, and multiple treatment options including but not limited to physical therapy, interventional therapies, adjuvant medical therapies, narcotic medication therapies, and surgery were discussed with the patient and all questions were answered to the patient's satisfaction. 2. Opioid agreement: No obvious prescribed today 3. Counseling: The patient was counseled extensively on SMOKING CESSATION, BODY MASS INDEX, EXERCISE. Specifically, the patient was instructed regarding the importance of smoking cessation, obesity, and exercise in the context of both chronic pain and overall health. 4. Procedures: Scheduled for cervical medial branch RFA for levels C2, C3, C4 and third occipital nerve on the right side. The left-sided be done shortly after. 5. Consultations: None 6. Investigations: None 7. Medications: None 8. Disposition: Return to clinic to the above-mentioned procedure as soon as possible 9. Maps were reviewed and were appropriate. PQRS measures: 1-Patient's medications are documented in the chart. 2-Tobacco use is negative, counseling given 3-Patient has had a pneumococcal vaccine. 4-Advanced care planning discussed, patient unable to give 5-Opioid contract signed with the patient. 6-Pain positive, follow-up visit or procedure scheduled 7-Patient's blood pressure measured and documented within normal limits. The patient will follow up with his primary care physician. 8-Patient's weight was measured, and body mass index ABOVE the normal limits, and counseling was done. Patient instructed to follow up with PCP. 9-Patient WAS NOT identified as an unhealthy alcohol user. Objective - Vital Signs Vital signs: Vital Signs Temp Pulse 91 03/08/19 13:29 Resp 16 03/08/19 13:29 BP 129/80 03/08/19 13:29 Pulse Ox
== END | disposition home or self-care (01) ==
LOC: PNWHC3 13:08
PROVIDERS: ATTEND Anesthesiology
DX: G89.29 Other chronic pain (principal); M96.1 Postlaminectomy syndrome, not elsewhere classified; G44.89 Other headache syndrome; M54.5 Low back pain; M47.812 Spondylosis without myelopathy or radiculopathy, cervical region; Z99.89 Dependence on other enabling machines and devices
CPT/HCPCS: 99211

== ENCOUNTER 2019-06-12 08:56 | Day surgery (SDC) | payer MEDICARE ==
[2019-06-04 15:06] VITALS: BMI 27.6
[~2019-06-12 08:56] MED LIST changes: +BUPIVACAINE (PF) 0.5% 30 ML VIAL ONE; +LACTATED RINGERS 1,000 ML IV SCH; +MIDAZOLAM 2 MG/2 ML VIAL ONE; -SODIUM CHLORIDE 0.9% 500 ML 500 ML IV SCH; +fentaNYL (PF) 50 MCG/ML 2 ML AMP ONE; +methylPREDNISolone ACETATE 40 MG/ML 1 ML VIAL ONE
[2019-06-12] MEDS ORDERED: LIDOCAINE 1% 20 ML VIAL (10MG/ML) FOR IV START INTRADERMA ONE (09:19)
[2019-06-12 09:38] VITALS: RESP 16; TEMP 97.8
--- NOTE | 2019-06-12 10:43 | P.PCN ---
Date of Procedure: 06/12/19 Procedure(s) Performed: PREOPERATIVE DIAGNOSIS:1- Cervical spondylosis with Facet Arthropathy without myelopathy. 2-occipital neuralgia. 3-cervicogenic headache POSTOPERATIVE DIAGNOSIS: Same as preop diagnosis. PROCEDURES: Radiofrequency thermocoagulation, right side C2-3, C3-4, medial branch with Fluroscopy Guidence. Radiofrequency thermocoagulation of his right side third occipital nerve, with fluoroscopy guidance ANESTHESIA: Local with Ropivacaine 0.5 % , moderate sedation with fentanyl 100 micrograms and Versed.2 mg EBL: Minimal PROCEDURE INDICATION: The patient with neck pain secondary to cervical arthropathy who had more than 50% relief of her pain with previous diagnostic cervical medial branch block. PROCEDURE DESCRIPTION / TECHNIQUE: The patient was seen and identified in the preoperative area. Risks, benefits, complications, and alternatives were discussed with the patient, the patient agreed to proceed with the procedure and signed the consent. IV was started. Vital signs remained stable throughout the procedure. Patient was taken to the OR and time out was completed. The patient was placed in the prone position on the procedure table. A pillow was placed under the patients chest to increase the cervical interlaminar space. The cervical area was prepped and draped in the usual sterile fashion. Critical pause was taken. Vital signs were closely monitored during the procedure. Conscious sedation was used during the procedure to decrease patients anxiety. Using cross-table lateral fluoroscopy, the centroid of the trapezoid of right C2 ,C3, were identified, marked, and localized with 1% lidocaine. Subsequently, a 20 -jc radiofrequency cannula with a 10-mm active tip was advanced guided by fluoroscopy to the centroid of the trapezoid of the right C2 ,C3, . Needle tip position was confirmed at the centroid of the trapezoids of the right C2 ,C3, with anteroposterior fluoroscopy. Each site then underwent sensory t esting at 50 Hz and 0 to 1 volt and motor testing at 2 Hz and 0 to 3 volt with local stimulation, but no radicular symptoms down the arm. Thereafter the right C2 ,and C3, sites underwent radiofrequency thermocoagulation at 80 degrees celsius for 90 seconds after injecting 0.5 ml of PF Ropivacaine 0.5 %. After thermocoagulation, 1 ml of the block solution containing depo-Medrol 40 mg and 2mL of preservative-free normal saline was injected at the right C2 ,C3 levels after negative aspiration of CSF and blood and with no paresthesias.,then I did the radiofrequency ablation of the right side third occipital nerve by placing 20-gauge radiofrequency active tip needle, placed at the center of the facet joint formed between C2 and C3 on the right side, needle placement confirmed with AP and lateral views and after negative aspiration we did the motor testing which was positive for localized contractions in the muscles on the right side and within the sensory testing which was positive , then after that the radiofrequency done at 80C for 90 seconds, and after the thermocoagulation on the needles removed,and the . Skin was cleansed and bandages were applied. COMPLICATIONS: No acute complications. DISPOSITION / PLANS: The patient was placed in a supine position and transferred to the recovery area in a stable condition for observation and was discharged from the recovery room after meeting discharge criteria. Home discharge instructions given to the patient by the staff. The patient was reexamined prior to discharge. The patient will schedule a follow up in the clinic in 2-4 weeks.
--- NOTE | 2019-06-12 10:53 | FL ---
Fluoroscopy INDICATION: Pain FINDINGS: Fluoroscopy time: 13 seconds. Images obtained: 2. IMPRESSIONS: 1. Documentation of fluoroscopy.
[2019-06-12 11:19] VITALS: BP 130/74; PULSE 77
== END 2019-06-12 11:31 | disposition home or self-care (01) ==
LOC: ORPAIN 08:56
PROVIDERS: ATTEND Specialist
DX: M47.812 Spondylosis without myelopathy or radiculopathy, cervical region (principal); M54.81 Occipital neuralgia; Z88.5 Allergy status to narcotic agent
CPT/HCPCS: 64640; 64633; 64634; J2250; J1030; J3010; 99152

== ENCOUNTER 2019-06-28 06:11 | Day surgery (SDC) | payer MEDICARE ==
[2019-06-27 09:03] VITALS: BMI 27.6
[~2019-06-28 06:11] MED LIST changes: -BUPIVACAINE (PF) 0.5% 30 ML VIAL ONE; -MIDAZOLAM 2 MG/2 ML VIAL ONE; -fentaNYL (PF) 50 MCG/ML 2 ML AMP ONE; -methylPREDNISolone ACETATE 40 MG/ML 1 ML VIAL ONE
[2019-06-28 06:42] VITALS: RESP 16; TEMP 97.5
[2019-06-28] MEDS ORDERED: LIDOCAINE 1% 20 ML VIAL (10MG/ML) FOR IV START INTRADERMA ONE (06:46)
[2019-06-28] MEDS ORDERED: MIDAZOLAM 2 MG/2 ML VIAL ONE (07:30)
[2019-06-28] MEDS ORDERED: fentaNYL (PF) 50 MCG/ML 2 ML AMP ONE ×2 (07:30)
[2019-06-28] MEDS ORDERED: LIDOCAINE 4% (PF) 5 ML AMP ONE (07:30)
[2019-06-28] MEDS ORDERED: IV FLUID CONTINUATION 600 ML IV ONE (08:10)
--- NOTE | 2019-06-28 08:41 | FL ---
EXAMINATION TYPE: FL guided pain mgmt statistic DATE OF EXAM: 06/28/2019 HISTORY: Pain Lt cerv RF. 12 sec fl. 5 images scanned.
--- NOTE | 2019-06-28 08:44 | P.PCN ---
Date of Procedure: 06/28/19 Procedure(s) Performed: PREOPERATIVE DIAGNOSIS: Cervical spondylosis POSTOPERATIVE DIAGNOSIS: Same PROCEDURES: Radiofrequency thermocoagulation of the C2, C3, C4 and third occipital nerve medial branches with fluoroscopic guidance on the left side for facets C2-3 and C3-4 SURGEON: Gabbi Sargent M.D. ANESTHESIA: Moderate sedation with intravenous versed and fentanyl and local infiltration with lidocaine 1% 5 ml , sedation time 30 minutes Fluoroscopy was used for the procedure and fluoroscopic images were saved to the radiology portion of patient's chart. EBL: Minimal PROCEDURE INDICATION: The patient with low back pain secondary to cervical facet arthropathy who had more than 50% relief of pain with previous diagnostic cervical medial branch block. PROCEDURE DESCRIPTION / TECHNIQUE: The patient was seen and identified in the preoperative area. Risks, benefits, complications, including but not limited to risk of infection ,bleeding , allergic reactions to the medications and incomplete pain relief , and alternatives were discussed with the patient, the patient agreed to proceed with the procedure and signed the consent. IV was started. The operative site was marked. Patient was taken to the OR and time out was completed. The patient was placed in the prone position on the procedure table. The cervical area was prepped and draped in the usual sterile fashion. . Vital signs were closely monitored during the procedure .IV sedation was used during the procedure to decrease patients anxiety. Using AP and lateral fluoroscopy, the waist corresponding to the connection between the superior and transverse articular processes of the above-mentioned levels were identified, marked, and localized with 1% lidocaine. Subsequently, an 18 -cn radiofrequency cannula with a 10-mm active tip was advanced guided by fluoroscopy to the midpoint of the centroid on the lateral view of the corresponding cervical vertebral bodies at each site then underwent motor testing at 2.5 Hz and 0 to 3 volt with local stimulation, but no radicular symptoms down the arms. Then the sites underwent radiofrequency thermocoagulation at 80 degrees celsius for 90 seconds after injecting 1 ml of PF lidocaine 4% at each site. A second round of radiofrequency ablation was performed after pulling each needle back by 1 mm. Cannulas were removed, the skin was cleansed and bandages were applied. COMPLICATIONS: No acute complications. DISPOSITION / PLANS: The patient was placed in a supine position and transferred to the recovery area in a stable condition for observation and was discharged from the recovery room after meeting discharge criteria. Home discharge instructions given to the patient by the staff. The patient will follow up in clinic in 2-4 weeks.
[2019-06-28 09:15] VITALS: BP 145/81; PULSE 77
== END 2019-06-28 09:30 | disposition home or self-care (01) ==
LOC: ORPAIN 06:11
PROVIDERS: ATTEND Anesthesiology
DX: M47.812 Spondylosis without myelopathy or radiculopathy, cervical region (principal); Z88.5 Allergy status to narcotic agent; Z88.6 Allergy status to analgesic agent
CPT/HCPCS: 64633; 64634; 64640; J2001; J2250; J3010; 99152; 99153

== ENCOUNTER → 2019-08-15 | Outpatient (CLI) | payer MEDICARE ==
--- NOTE | 2019-08-15 17:14 | PN ---
PROGRESS NOTE DATE OF SERVICE: 08/15/2019 64-year-old gentleman has been followed in [facility] for treatment of obstructive sleep apnea-hypopnea syndrome. The patient continued to use his CPAP equipment every night for the whole night, feels better with the machine. [place] Sleepiness Scale today is 7. I checked his CPAP unit. Pressure is 14 cm of water. Usage is 30/30 nights for more than 4 hours with average usage 10.4 hours per night. Leak is 6 L/minute, which is normal range. Apnea-hypopnea index 5.8, which is borderline. [place] Sleepiness Scale today is 7. MEDICATIONS: Ventolin, Symbicort, Spiriva, Cymbalta, simvastatin, levothyroxine. PHYSICAL EXAM: Patient in no distress. BP 105/63, HR 64, RR 15, height 5 feet 7 inches, weight 179, body mass index 28, temperature 98.1. Oxygen saturation at room air 96%. Oropharynx low position of soft palate. Mallampati 4. NECK: Supple, no JVD. Thyroid is not palpable. LUNGS: Clear to percussion and to auscultation. Good air exchange. No wheezing or rhonchi. HEART: S1, S2 regular. No murmurs, gallops, or rubs. ABDOMEN: Soft and nontender. Bowel sounds are present. No organomegaly appreciated. EXTREMITIES: No clubbing or cyanosis. WAITER/WAITRESS FORMAL: Awake, alert, and oriented X3. Cranial nerves 2 to 7 intact. There is no fasciculation or atrophy. noted. No focal deficits observed. IMPRESSION: 1. Obstructive sleep apnea-hypopnea syndrome. Patient demonstrated 100% compliance with treatment, benefitting from treatment. 2. No significant symptoms of periodic limb movements during the night. 3. History of back problems. 4. History of restless legs syndrome. 5. Problems with hearing. 6. History of chronic obstructive pulmonary disease. 7. Status post back surgery. PLAN: 1. Patient will continue to use CPAP equipment every night for the whole night. 2. Prescriptions for nasal mask. The patient prefers this type of interface. 3. Watching weight. 4. Sleep hygiene with regular time in bed for 7-1/2 to 8 hours. 5. No driving if feeling sleepiness. Thank you very much for allowing me to participate in the management of your patient. Sincerely, Gene Roman MD, PhD, FAASM Diplomat of [employer] [employer] Assistant Professor Of Religion of [facility] [place] MMODL / MAYCOL: [id number] /
== END | disposition home or self-care (01) ==
LOC: SLEEP 15:48
PROVIDERS: ATTEND Internal Medicine
DX: G47.33 Obstructive sleep apnea (adult) (pediatric) (principal); Z87.39 Personal history of other diseases of the musculoskeletal system and connective tissue; Z87.09 Personal history of other diseases of the respiratory system; H91.90 Unspecified hearing loss, unspecified ear; Z98.1 Arthrodesis status; Z79.899 Other long term (current) drug therapy

== ENCOUNTER → 2020-08-13 | Outpatient (CLI) | payer MEDICARE ==
[2020-08-13 14:30] VITALS: BP 124/76; PULSE 99; RESP 16; TEMP 98.1
--- NOTE | 2020-08-13 14:30 | P.PAINPG ---
Subjective Progress Note Date: 08/13/20 This is a 65-year-old gentleman with history of cervical and lumbar postlaminectomy pain syndrome. Of note patient has an SCS implanted by Dr Sharp, back pain well controlled with SCS and 1-2 Percocet every 2-3 weeks, Bandar Fisher Seroquel. He recently underwent cervical radiofrequency ablation of third occipital nerve, C3, C4, right side on 06/12/2019 and left side on 06/28/2019. Our plan was to do bilateral occipital nerve blocks, patient had excellent relief from RFA but still had occipital pain. Had excellent relief from procedure and we have not seen him since 07/2019. Never scheduled the occipital nerve blocks. Here for follow up today. Patient says that his pain is returned. Pain is located in the occipital region with occasional radiation to the bilateral shoulders. There is also some radiation to the vertex of his head. It is a same pain as he had prior to the RFA's. There RFAs in the past were very helpful he would like to repeat these. He also notes that he is having some back pain. Also has a spinal cord stimulator, says that the trial actually worked better than the implant. Feels he has to crank settings of very hard to get any relief in his back. Patient denies new-onset weakness, bowel/bladder incontinence, or any other signs or symptoms of cauda equina syndrome. There are no signs of acute intoxication, and no indications of medication diversion or overuse. In addition to above, 13-point review of systems is also negative for chest pain, shortness of breath, changes in vision, changes in hearing, new onset weakness, abdominal pain, diarrhea, extreme fatigue, malaise, fever, skin changes, homicidal or suicidal ideation, or bowel or bladder incontinence. Physical exam: Vitals: Reviewed in EMR GENERAL: Well appearing, in no acute distress PSYCH: Mood and affect is appropriate. Awake, alert, and oriented SKIN: Skin color, texture, turgor normal, no rashes or lesions HEENT: Normocephalic, atraumatic. EOM intact CV: No pedal edema RESP: Respirations are unlabored, no audible wheezing GI: Abdomen non-distended MUSCULOSKELETAL: Bilateral upper extremity strength is normal and symmetric. No atrophy or tone abnormalities are noted. Neck: mild tenderness to palpation over the cervical paraspinous muscles bilaterally. Spurling negative, Ambriz's sign negative. No pain with neck flexion, extension, or lateral flexion. No obvious deformity or signs of trauma. Normal cervical lordotic curve and normal cervical spine range of motion. Extremities: Peripheral joint ROM is full and pain free without obvious instability or laxity in all four extremities. No edema or skin discolorations noted. Gait: Gait is normal NEUR: Bilateral upper extremity coordination and muscle stretch reflexes are physiologic and symmetric. Negative clonus bilaterally. No loss of sensation is noted. Imaging: Reviewed in EMR/chart Assessment: Cervicogenic headache Cervical and lumbar post times a day pain syndrome Spinal cord stimulator in place Cervical spondylosis without myelopathy occipital neuralgia Plan: 1. Explanation: none 2. Opioid agreement: None 3. Counseling: none 4. Procedures: Repeat RFA C2-C3, C3-4 bilaterally 5. Consultations: None 6. Investigations: None 7. Medications: no changes 8. Disposition: for above-mentioned procedure I spent 31 minutes on patient care today. The time was used to review medical records including relevant urine studies and prescription history (MAPs), review of the available imaging, evaluation and examination the patient, coordination of care at the medical staff and if applicable referring physicians, as well as creation of the medical record. PQRS measures: 1-Patient's medications are documented in the chart. 2-Tobacco use is negative 3-Patient has had a pneumococcal vaccine. 4-Advanced care planning discussed, patient unable to give 5-Opioid contract not signed with the patient. 6-Pain positive, follow-up visit or procedure as needed 7-Patient's blood pressure measured and documented within normal limits. The patient will follow up with his primary care physician. 8-Patient's weight was measured, and body mass index ABOVE the normal limits, and counseling was done. Patient instructed to follow up with PCP. 9-Patient WAS NOT identified as an unhealthy alcohol user. PQRS Measure Charge Sheet PQRS Narrative: Smoking Status Former smoker Hx Alcohol Use (MH) Yes: social Home Medications: Ambulatory Orders Albuterol Inhaler (Mhu) [Ventolin Inhaler] 1 - 2 puff INHALATION Q6H PRN 02/12/15 Levothyroxine Sodium [Synthroid] 50 mcg PO DAILY 02/12/15 DULoxetine HCL [Cymbalta] 60 mg PO BID 06/22/17 Atorvastatin [Lipitor] 20 mg PO DAILY 01/10/18 Pregabalin [Lyrica] 75 mg PO BID 01/10/18 QUEtiapine [SEROquel] 200 mg PO HS 01/10/18 Tamsulosin [Flomax] 0.4 mg PO DAILY 01/10/18 oxyCODONE-APAP 7.5-325MG [Percocet 7.5-325 mg] 1 tab PO Q6HR PRN 03/08/19 Budesonide/Glycopyr/Formoterol [Breztri Aerosphere Inhaler] 2 puff INHALATION BID 08/12/20 lamoTRIgine [LaMICtal] 25 mg PO DAILY 08/12/20 Controlled Substance Measures - Controlled Substance Measures Is patient prescribed a controlled substance at discharge?: No
== END ==
LOC: PNWHC3 14:19
PROVIDERS: ATTEND Anesthesiology
DX: M47.812 Spondylosis without myelopathy or radiculopathy, cervical region (principal); M54.81 Occipital neuralgia; Z96.82 Presence of neurostimulator; Z87.891 Personal history of nicotine dependence
CPT/HCPCS: 99211

== ENCOUNTER 2020-09-05 06:17 | Day surgery (SDC) | payer MEDICARE ==
[2020-09-02 09:55] VITALS: BMI 27.3
[2020-09-05 06:38] VITALS: RESP 16; TEMP 97
[2020-09-05] MEDS ORDERED: LACTATED RINGERS 1,000 ML IV ONE (06:43)
[2020-09-05] MEDS ORDERED: LIDOCAINE 1% (10MG/ML) FOR IV START INTRADERMA ONE (06:43)
[2020-09-05] MEDS ORDERED: DEXAMETHASONE SOD PHOSPHATE 10 MG/ML 1 ML VIAL ONE (06:58)
[2020-09-05] MEDS ORDERED: LIDOCAINE 1% INJ 10MG/ML (20 ML MDV) ONE (06:58)
[2020-09-05] MEDS ORDERED: MIDAZOLAM 2 MG/2 ML VIAL ONE (06:58)
[2020-09-05] MEDS ORDERED: fentaNYL (PF) 50 MCG/ML 2 ML AMP ONE (06:58)
[2020-09-05] MEDS ORDERED: IV FLUID CONTINUATION 300 ML IV ONE (07:48)
--- NOTE | 2020-09-05 07:49 | P.PCN ---
Date of Procedure: 09/05/20 Description of Procedure: PREOPERATIVE DIAGNOSIS: Cervical spondylosis, Occiptal Neuralgia POSTOPERATIVE DIAGNOSIS: Same PROCEDURES: Radiofrequency thermocoagulation of the C2, C3, C4 and third occipital nerve medial branches with fluoroscopic guidance on the Bilateral facets C2-3 and C3-4 SURGEON: Noel Richards M.D. ANESTHESIA: Moderate sedation with intravenous versed and fentanyl and local infiltration with lidocaine 1% 5 ml , sedation time >30 minutes Fluoroscopy was used for the procedure and fluoroscopic images were saved to the radiology portion of patient's chart. EBL: Minimal PROCEDURE INDICATION: The patient with low back pain secondary to cervical facet arthropathy and post cervical fusion pain who had more than 80% relief with previous Cervical RFA at same levels. PROCEDURE DESCRIPTION / TECHNIQUE: The patient was seen and identified in the preoperative area. Risks, benefits, complications, including but not limited to risk of infection ,bleeding , allergic reactions to the medications and incomplete pain relief , and alternatives were discussed with the patient, the patient agreed to proceed with the procedure and signed the consent. IV was started. The operative site was marked. Patient was taken to the OR and time out was completed. The patient was placed in the prone position on the procedure table. The cervical area was prepped and draped in the usual sterile fashion. . Vital signs were closely monitored during the procedure .IV sedation was used during the procedure to decrease patients anxiety. Using AP and lateral fluoroscopy, the waist corresponding to the connection between the superior and transverse articular processes of the above-mentioned levels were identified, marked, and localized with 1% lidocaine. Subsequently, an 20 [id number] radiofrequency cannula with a 10-mm active tip was advanced guided by fluoroscopy to the midpoint of the centroid on the lateral view of the corresponding cervical vertebral bodies C2, C3, C4 bilaterally at each site then underwent motor testing at 2.5 Hz and 0 to 3 volt with local stimulation, but no radicular symptoms down the arms. Then the sites underwent radiofrequency thermocoagulation at 80 degrees celsius for 60 seconds after injecting 1 ml of PF lidocaine 4% at each site. A second round of radiofrequency ablation was performed after pulling each needle back by 1 mm. I then injected 2.5mg of PF dexamethasone at each cannula site. Cannulas were removed, the skin was clean sed and bandages were applied. COMPLICATIONS: No acute complications. DISPOSITION / PLANS: The patient was placed in a supine position and transferred to the recovery area in a stable condition for observation and was discharged from the recovery room after meeting discharge criteria. Home discharge instructions given to the patient by the staff. The patient will follow up in clinic in 2-4 weeks.
[2020-09-05 08:19] VITALS: BP 148/81; PULSE 64
--- NOTE | 2020-09-05 08:59 | FL ---
Fluoroscopy INDICATION: Pain FINDINGS: Fluoroscopy time: 1 minute 40 seconds. Images obtained: 5. IMPRESSIONS: 1. Documentation of fluoroscopy.
== END 2020-09-05 08:29 | disposition home or self-care (01) ==
LOC: ORPAIN 06:17
PROVIDERS: ATTEND Anesthesiology
DX: M47.812 Spondylosis without myelopathy or radiculopathy, cervical region (principal); M54.81 Occipital neuralgia; J44.9 Chronic obstructive pulmonary disease, unspecified; Z98.1 Arthrodesis status; Z98.890 Other specified postprocedural states; Z88.5 Allergy status to narcotic agent; Z97.2 Presence of dental prosthetic device (complete) (partial); Z96.82 Presence of neurostimulator
CPT/HCPCS: 64633; 64634; J2250; J1100; J2001 ×2; J3010

== ENCOUNTER → 2020-10-08 | Outpatient (CLI) | payer MEDICARE ==
[2020-10-08 10:46] VITALS: BP 135/77; PULSE 88; RESP 20; TEMP 97.6
--- NOTE | 2020-10-08 10:46 | P.PAINPG ---
Subjective Progress Note Date: 10/08/20 This is a 65-year-old gentleman with history of cervical and lumbar postlaminectomy pain syndrome. Of note patient has an SCS implanted by Dr Sharp, back pain well controlled with SCS and 1-2 Percocet every 2-3 weeks, Bandar Fisher Seroquel. He underwent cervical radiofrequency ablation of third occipital nerve, C3, C4, right side on 06/12/2019 and left side on 06/28/2019. Just had bilateral C2-C3 and C3-C4 RFA repeated. Patient here for follow up today. He notes that his recent RFA did not help as much as it did in the past, does understand that these do take time. His pain is located in his occipital region currently at a 2 out of 10, can get up to a 5 out of 10. It is the same pain as he had before with his previous RFA's. He says that if this is not provided relief soon, he would like to repeat the radiofrequency ablation when he can. He does understand that he'll have some type of chronic pain at all times and will try to do with it. Patient denies new-onset weakness, bowel/bladder incontinence, or any other signs or symptoms of cauda equina syndrome. There are no signs of acute intoxication, and no indications of medication diversion or overuse. In addition to above, 13-point review of systems is also negative for chest pain, shortness of breath, changes in vision, changes in hearing, new onset weakness, abdominal pain, diarrhea, extreme fatigue, malaise, fever, skin changes, homicidal or suicidal ideation, or bowel or bladder incontinence. Physical exam: Vitals: Reviewed in EMR GENERAL: Well appearing, in no acute distress PSYCH: Mood and affect is appropriate. Awake, alert, and oriented SKIN: Skin color, texture, turgor normal, no rashes or lesions HEENT: Normocephalic, atraumatic. EOM intact CV: No pedal edema RESP: Respirations are unlabored, no audible wheezing GI: Abdomen non-distended MUSCULOSKELETAL: Bilateral upper extremity strength is normal and symmetric. No atrophy or tone abnormalities are noted. Neck: mild tenderness to palpation over the cervical paraspinous muscles bilaterally. Spurling negative, Ambriz's sign negative. No pain with neck flexion, extension, or lateral flexion. No obvious deformity or signs of trauma. Normal cervical lordotic curve and normal cervical spine range of motion. Extremities: Peripheral joint ROM is full and pain free without obvious instability or laxity in all four extremities. No edema or skin discolorations noted. Gait: Gait is normal NEUR: Bilateral upper extremity coordination and muscle stretch reflexes are physiologic and symmetric. Negative clonus bilaterally. No loss of sensation is noted. Imaging: Reviewed in EMR/chart Assessment: Cervicogenic headache Cervical and lumbar post laminectomy syndrome Spinal cord stimulator in place Cervical spondylosis without myelopathy occipital neuralgia Plan: - Will return as needed he cannot have another radiofrequency ablation till March. If he does come back with significant pain consider bilateral occipital nerve blocks. I spent 25 minutes on patient care today. The time was used to review medical records including relevant urine studies and prescription history (MAPs), review of the available imaging, evaluation and examination the patient, coordination of care at the medical staff and if applicable referring physicians, as well as creation of the medical record. PQRS Measure Charge Sheet PQRS Narrative: Smoking Status Former smoker Hx Alcohol Use (MH) Yes: social Home Medications: Ambulatory Orders Albuterol Inhaler (Mhu) [Ventolin Inhaler] 1 - 2 puff INHALATION Q6H PRN 02/12/15 Atorvastatin [Lipitor] 20 mg PO DAILY 01/10/18 Pregabalin [Lyrica] 75 mg PO BID 01/10/18 Tamsulosin [Flomax] 0.4 mg PO BID 01/10/18 Budesonide/Glycopyr/Formoterol [Breztri Aerosphere Inhaler] 2 puff INHALATION BID 08/12/20 lamoTRIgine [LaMICtal] 150 mg PO DAILY 08/12/20 Levothyroxine Sodium [Synthroid] 50 mcg PO DAILY 10/07/20 Controlled Substance Measures - Controlled Substance Measures Is patient prescribed a controlled substance at discharge?: No
== END ==
LOC: PNWHC3 10:31
PROVIDERS: ATTEND Anesthesiology
DX: M96.1 Postlaminectomy syndrome, not elsewhere classified (principal); G44.89 Other headache syndrome; M47.812 Spondylosis without myelopathy or radiculopathy, cervical region; M54.81 Occipital neuralgia; Z87.891 Personal history of nicotine dependence; Z96.82 Presence of neurostimulator
CPT/HCPCS: 99211

== ENCOUNTER → 2020-10-15 | Outpatient (CLI) | payer MEDICARE ==
--- NOTE | 2020-10-15 14:05 | SFUN ---
SLEEP CENTER FOLLOW UP NOTE DATE OF SERVICE: 10/15/2020 65-year-old gentleman has been followed in Sleep Center for treatment of obstructive sleep apnea-hypopnea syndrome. I saw the patient during the previous visit more than one year ago. During the previous visit, he demonstrated 100% compliance of using the machine without significant leak and with borderline apnea-hypopnea index 5.8. At the present time, the patient results developed some problems related to dryness while using his CPAP equipment. Subsequently he was not able to use equipment regularly during the last several months. [place] Sleepiness Scale today is 4 which is normal. I checked the CPAP unit pressure is 14 cm of water. Usage is 18/30 nights and 13/30 nights for more than 4 hours, average 5.8 hours per night. Leak is 20 L/minute, which is borderline. Apnea-hypopnea index is 13.0, which increased and that includes apnea index 9.9 and central abnormalities of respiration 2.4. Humidity is off. CURRENT MEDICATIONS: Seroquel, Zocor, Synthroid, Ventolin, Lyrica, Flomax, vitamin D, Vitamin E, Symbicort. PHYSICAL EXAMINATION: GENERAL: Patient in no distress. BP 126/58, HR 87, RR 14, height 5 feet and 7 inches, weight 168.8. Patient lost about 10 pounds. Temperature 98.1. Oxygen saturation at room air 94%. Oropharynx: Low position of soft palate, Mallampati 4. NECK: Supple, no JVD. Thyroid is not palpable. LUNGS: Clear to percussion and to auscultation. Good air exchange. No wheezing or rhonchi. HEART: S1, S2 regular. No murmurs, gallops, or rubs. ABDOMEN: Soft and nontender. Bowel sounds are present. No organomegaly appreciated. EXTREMITIES: No clubbing or cyanosis. ENVIRONMENTAL RESTORATION PLANNER: Awake, alert, and oriented X3. Cranial nerves 2 to 7 intact. There is no fasciculation or atrophy noted. No focal deficits observed. IMPRESSION: 1. Obstructive sleep apnea-hypopnea syndrome. The patient developed some problems with usage of CPAP equipment secondary to dryness in the nose. Apnea-hypopnea index increased to 13. Central apnea index 2.4. Humidifier at the level of 0. 2. No significant recent problems with periodic limb movements. 3. History of back problems. 4. History of restless leg syndrome. 5. Hearing problems. 6. Chronic obstructive pulmonary disease. 7. Status post back surgery. 8. Hypothyroidism. PLAN: 1. I discussed in details with the patient the necessity to adjust humidity and the higher level. Presently it is at 0. I adjusted it to maximal because by my feeling humidifier is working, but does not create enough temperature. 2. Prescription to check the patient's CPAP unit and to check humidifier as necessary to replace it. 3. I changed regimen in the unit to automatic. Range of the pressure 8-15 cm of water. 4. Patient will continue to use PAP equipment every night for the whole night. 5. Sleep hygiene with regular time in bed for at least 7-1/2 to 8 hours. 6. Precautions related to driving. No driving if feeling sleepiness. 7. I will maintain all necessary prescription for PAP supplies including mask, tube, filters. 1. Follow-up visit in 2 months or earlier if patient has any problems. Thank you very much for allowing me to participate in the management of your patient. Sincerely, Gene Roman MD, PhD, FAASM Diplomat of [employer] D[employer] Superintendent [facility] [place] MMODL / IJN: [id number] /
== END ==
LOC: SLEEP 10:22
PROVIDERS: ATTEND Internal Medicine
DX: G47.33 Obstructive sleep apnea (adult) (pediatric) (principal); J44.9 Chronic obstructive pulmonary disease, unspecified; H91.90 Unspecified hearing loss, unspecified ear; E03.9 Hypothyroidism, unspecified; Z87.39 Personal history of other diseases of the musculoskeletal system and connective tissue; Z98.890 Other specified postprocedural states; Z86.69 Personal history of other diseases of the nervous system and sense organs; Z79.890 Hormone replacement therapy; Z79.899 Other long term (current) drug therapy; Z88.8 Allergy status to other drugs, medicaments and biological substances; Z87.891 Personal history of nicotine dependence

== ENCOUNTER → 2021-02-05 | Outpatient (CLI) | payer MEDICARE ==
--- NOTE | 2021-02-05 18:33 | SFUN ---
SLEEP CENTER FOLLOW UP NOTE DATE OF SERVICE: 02/05/2021. 65-year-old gentleman has been followed in Sleep Center for treatment of obstructive sleep apnea-hypopnea syndrome. The patient continues to use his CPAP equipment every night, but because his machine had problems, his machine was sent in for fixing and he is now using a loaner. During previous visit, apnea-hypopnea index was increased to 13, which included apnea index 9.9 and central abnormalities of respiration to 0.4, and I changed the regimen of the machine to automatic with range of the pressure 8-15. I checked CPAP unit. Range of the pressure 8-15, average 13.9, usage 29/30 nights and /30 nights more than 4 hours, average 7.7 hours per night. Leak is only 0 L/minute. Apnea-hypopnea index reduced to 7.5 comparing with the previous visit, but still slightly above normal range. MEDICATIONS: Seroquel, Zocor, Synthroid, Ventolin, Lyrica, Flomax, Symbicort, eyedrops. Other medication for depression and anxiety. Patient does not remember the name. PHYSICAL EXAMINATION: GENERAL: Patient in no distress. BP 114/61, HR 78, RR 15, height 5 feet 7.5 inches, weight 168.8 pounds, body mass index 26.0. Temperature 97.4, oxygen saturation at room air 96%. Oropharynx extremely low position of soft palate, Mallampati 4. NECK: Supple, no JVD. Thyroid is not palpable. LUNGS: Clear to percussion and to auscultation. Good air exchange. No wheezing or rhonchi. HEART: S1, S2 regular. No murmurs, gallops, or rubs. ABDOMEN: Soft and nontender. Bowel sounds are present. No organomegaly appreciated. EXTREMITIES: No clubbing or cyanosis. LOCKSTITCH FRONT EDGE TAPE SEWER: Awake, alert, and oriented X3. Cranial nerves 2 to 7 intact. There is no fasciculation or atrophy. noted. No focal deficits observed. IMPRESSION: 1. Obstructive sleep apnea-hypopnea syndrome. Patient demonstrated great compliance with treatment benefitting from treatment, improvements apnea-hypopnea index since previous visit after pressure was changed to automatic, but still slightly above normal range. 2. No recent problems with periodic limb movements. 3. History of back problems. 4. History of restless legs syndrome. 5. Hearing problems. 6. Chronic obstructive pulmonary disease. 7. Status post back surgery. 8. Hypothyroidism. PLAN: 1. I changed pressure to the range from 8 cm of water up to 17 cm of water. 2. Patient will continue to use PAP equipment every night for the whole night. 3. Sleep hygiene with regular time in bed for at least 7-1/2 to 8 hours. 4. Precautions related to driving. No driving if feeling sleepiness. 5. I will maintain all necessary prescription for PAP supplies including mask, tube, filters. 6. Watching weight. 7. Follow-up visit in 6 months or earlier if patient has any problems. Thank you very much for allowing me to participate in management of your patient. Sincerely, Gene Roman MD, PhD, FAASM Diplomat of [place] [employer] Sleep Medicine Board of [place] [employer] Engine Dynamometer Tester of [facility] [place] MMJUAN MANUELL / MARIEN: [id number] /
== END | disposition home or self-care (01) ==
LOC: SLEEP 13:49
PROVIDERS: ATTEND Internal Medicine
DX: G47.33 Obstructive sleep apnea (adult) (pediatric) (principal); G25.81 Restless legs syndrome; J44.9 Chronic obstructive pulmonary disease, unspecified; E03.9 Hypothyroidism, unspecified; Z98.1 Arthrodesis status

== ENCOUNTER → 2021-09-23 | Outpatient (CLI) | payer MEDICARE ==
--- NOTE | 2021-09-23 18:39 | SFUN ---
SLEEP CENTER FOLLOW UP NOTE DATE OF SERVICE: 09/23/2021 66-year-old gentleman has been followed in Sleep Center for treatment of obstructive sleep apnea-hypopnea syndrome. Patient continued to use his CPAP equipment, but experiencing dry mouth and also has symptoms of restless legs and leg movements during the night. [place] Sleepiness Scale today is 5, which is in normal range. I checked his CPAP unit. Range of the pressure 8-17, average pressure 13.3, usage 18/ nights. Average 5.3 hours per night. Borderline compliance. Leak is only 2 L/minutes which is not significant. Apnea-hypopnea index reduced to 5.7, which is borderline. MEDICATIONS: Flomax, Lyrica twice a day, Zocor, paroxetine, albuterol. PHYSICAL EXAMINATION: GENERAL: Patient in no distress. BP 119/67, HR 80, RR 16, weight 168.6 pounds, height 5 feet 7-1/2 inches, body mass index 26, temperature 97.7, oxygen saturation at room air 97%. Oropharynx: Extremely low position of soft palate, Mallampati 4. NECK: Supple, no JVD. Thyroid is not palpable. LUNGS: Clear to percussion and to auscultation. Good air exchange. No wheezing or rhonchi. HEART: S1, S2 regular. No murmurs, gallops, or rubs. ABDOMEN: Soft and nontender. Bowel sounds are present. No organomegaly appreciated. EXTREMITIES: No clubbing or cyanosis. EATING DISORDER PSYCHOLOGIST: Awake, alert, and oriented X3. Cranial nerves 2 to 7 intact. There is no fasciculation or atrophy. noted. No focal deficits observed. IMPRESSION: 1. Obstructive sleep apnea-hypopnea syndrome. Patient demonstrated borderline compliance with treatment, benefitting from treatment, dry mouth, most probably because patient opened his mouth sometimes, although no significant leak from the mask. 2. Patient has symptoms of restless legs syndrome and periodic limb movements. 3. History of back problems. 4. Hearing problems. 5. Chronic obstructive pulmonary disease. 6. Status post back surgery. 7. Hypothyroidism. PLAN: 1. Prescription for chin strap. 2. Will try smallest doses of Mirapex 0.125 mg 1-2 tablets at bedtime for restless legs and periodic limb movements. 3. The patient has to change the machine measurement unit from Celsius to Fahrenheit which I did. 4. Patient will continue to use PAP equipment every night for the whole night. 5. Sleep hygiene with regular time in bed for at least 7-1/2 to 8 hours. 6. Precautions related to driving. No driving if feeling sleepiness. 7. I will maintain all necessary prescription for PAP supplies including mask, tube, filters. 8. Watching weight. 9. Follow-up visit in 6 months or earlier if patient has any problems. Thank you very much for allowing me to participate in management of your patient. Sincerely, Gene Roman MD, PhD, FAASM Diplomat of [place] [employer] Sleep Medicine Board of [place] [employer] Feather Baler of [facility] [place] MMODL / IJN: [id number] /
== END | disposition home or self-care (01) ==
LOC: SLEEP 14:33
PROVIDERS: ATTEND Internal Medicine
DX: G47.33 Obstructive sleep apnea (adult) (pediatric) (principal); G25.81 Restless legs syndrome; J44.9 Chronic obstructive pulmonary disease, unspecified; E03.9 Hypothyroidism, unspecified; Z98.890 Other specified postprocedural states

== ENCOUNTER → 2022-04-28 | Outpatient (CLI) | payer MEDICARE ==
--- NOTE | 2022-04-28 11:45 | P.PN ---
Subjective DATE: 04/28/2022 FOLLOW UP VISIT. Patient with obstructive sleep apnea hypopnea syndrome return to sleep center for follow-up visit. Information from previous visit have been reviewed. Patient used CPAP equipment before, but for the last 2 months was not able to use it, because high temperature of the ear coming from CPAP increase problems for his COPD. She tried to make temperature less but he was not successful. The patient does not have significant problems with the mask or PAP unit pressure. [place] sleepiness scale is increased to 12. I checked information from PAP unit. PAP unit pressure 8-17, average 14.1 cm H2O. When patient use it 2 months ago, average 5.3 hours per night. Leak is 4 l/m, which is in acceptable range. Apnea Hypopnea Index was 5.7, which is borderline. MEDICATIONS:1. Omeprazole 2. Albuterol 3. Lipitor 4. Levothyroxine 5. Paroxetine 6. Lyrica 7. Tamsulosin During physical exam: GENERAL: A pleasant patient without any distress. VITAL SIGNS: BP 117/55, HR 74, RR 16, weight 168, BMI 25.9, temperature 97.7, oxygen saturation at room air 96 % . HEENT: PERRLA, EOMI.low position of soft palate, Mallapati 4 . NECK: Supple. No JVD. LUNGS: Clear to percussion and to auscultation. Good air exchange. No wheezing or rhonchi. HEART: S1, S2 regular. ABDOMEN: Soft and nontender.[] EXTREMITIES: No clubbing or cyanosis. MILK PASTEURIZER: Awake, alert, and oriented x3. No focal deficit. Impressions: 1. Obstructive sleep apnea-hypopnea syndrome. Previously patient demonstrated good compliance with treatment. Presently she has problems related to heat adjustment in CPAP unit. 2. History of RLS. 3. Back problems. 4. COPD. 5. History of hearing problems. 6. Hypothyroidism. 7. Status post back surgery. Plan: 1. Continue using PAP equipment every night for the whole night. I teach patient how to adjust heat in CPAP unit in details. Heated humidifier temperature was adjusted down to 0, because patient cannot tolerate any warm air. 2. To change air filter at least 1-2 times per month. 3. PAP unit should stay lower then position of the head. 4. Advised patient to remove all remaining water from humidifier canister daily and make it dry after each usage. Refill canister with fresh distilled water before each usage. 5. Sleep hygiene with regular time in bed for at least 8 hours. 6. Precautions related to driving. No driving if feel any sleepiness. 7. I will maintain prescription for PAP supplies including mask, tube, filters. 8. Follow up visit in 3 months or earlier if patient has any problems. 9. Watching weight. Thank you very much for allowing me to participate in the management of your patient. Gene Roman MD, PhD, FAASM. Diplomat of [place] [employer], Sleep Medicine Board by [place] [employer] Industrial Waste Inspector of [facility] [place]
== END | disposition home or self-care (01) ==
LOC: SLEEP 11:11
PROVIDERS: ATTEND Internal Medicine
DX: G47.33 Obstructive sleep apnea (adult) (pediatric) (principal); G25.81 Restless legs syndrome; J44.9 Chronic obstructive pulmonary disease, unspecified; E03.9 Hypothyroidism, unspecified; Z68.25 Body mass index [BMI] 25.0-25.9, adult